=== PATIENT | female | born 1965 | race American Indian/Alaskan Native ===

== ENCOUNTER 2018-02-19 13:03 | Inpatient (IN) | payer MEDICAID ==
[2018-02-19 13:06] VITALS: BMI 43.4
[2018-02-19] MEDS ORDERED: Iodixanol 320 MG/ML 100 ML BOTTLE IV ONE (13:13)
[2018-02-19] MEDS ORDERED: Sodium Chloride 0.9% 1,000 ML IV SCH (13:15)
--- NOTE | 2018-02-19 13:15 | ED PDOC ---
Arrival/HPI - General Time Seen by Provider: 02/19/18 13:05 Historian: Patient, EMS - History of Present Illness Narrative History of Present Illness (Text): 02/19/18 13:16 Patient is a 52 yo female, reports past medical history of smoking and past history of hypertension, presents to the Emergency Department stating that she had acute onset of dizziness while sitting and talking on the phone. States she has increased dizziness when looking to the left. She has "feeling like something is not right" in her head but currently denies headache or chest pain or shortness of breath. Currently denies numbness or weakness to arms or legs. Denies neck pain. Denies fever or recent illness. 02/19/18 13:16 Family/Social History Family/Social History: Unknown Family HX Allergies/Home Meds Allergies/Adverse Reactions: Allergies diphenhydramine [From Benadryl] Allergy (Verified 02/19/18 13:06) RASH seafood Allergy (Uncoded 02/19/18 13:06) RASH Review of Systems - Review of Systems Constitutional: absent: Fatigue, Fevers Eyes: Vision Changes. absent: Eye Pain ENT: absent: Sore Throat, Rhinorrhea, Epistaxis, Sinus Congestion Respiratory: absent: SOB, Cough Cardiovascular: absent: Chest Pain, DRIVER Gastrointestinal: absent: Abdominal Pain Genitourinary Female: absent: Dysuria, Frequency Musculoskeletal: absent: Back Pain Skin: absent: Rash Neurological: Dizziness, Disequilibrium. absent: Headache, Focal Weakness, Speech Changes Endocrine: absent: Polyuria Hemo/Lymphatic: absent: Easy Bleeding Psychiatric: absent: Depression Physical Exam Vital Signs Reviewed: Yes Vital Signs Temp Pulse Resp BP Pulse Ox 02/19/18 15:16 98 F 84 18 172/93 H 100 02/19/18 15:04 65 02/19/18 14:49 57 L 18 211/99 H 100 02/19/18 14:06 68 18 182/102 H 97 02/19/18 14:05 70 187/112 H 02/19/18 13:52 68 18 187/112 H 98 02/19/18 13:41 98.4 F 65 18 178/130 H 96 Temperature: Afebrile Appearance: Positive for: Uncomfortable Pain Distress: Mild Mental Status: Positive for: Alert and Oriented X 3 Finger Stick Blood Glucose: 95 - Systems Exam Head: Present: Atraumatic Pupils: Present: PERRL Extroacular Muscles: Present: Gaze Palsy, Other (bilateral limitations with updward gaze, limitation with gaze in left eye) Conjunctiva: No: Injected Ears: No: Erythema Mouth: Present: Moist Mucous Membranes Pharnyx: No: ERYTHEMA Nose (Internal): Present: Normal Inspection Neck: Present: Normal Range of Motion. No: Meningeal Signs Respiratory/Chest: Present: Clear to Auscultation. No: Respiratory Distress Cardiovascular: Present: Regular Rate and Rhythm Abdomen: No: Tenderness Back: No: CVA Tenderness Upper Extremity: No: Cyanosis Lower Extremity: No: Edema Neurological: Present: Other (mild pronator drift). No: CN II-XII Intact Skin: Present: Warm Psychiatric: Present: Alert, Normal Concentration Medical Decision Making ED Course and Treatment: 02/19/18 13:20 Patient seen immediately upon arrival. She reports that she had sudden onset of symptoms approximately 12:45 while on phone. Currently denies headache or chest pain. Gaze palsy noted. CODE stroke called. Dr. Katty Lewis, neurologist is present in ED and also evaluated patient upon arrival. CT head and MRI ordered. Ddx cva, tia, aneurysm, mass, hemorrhage. Patient currently at CT awaiting results and will monitor, re-exam, serial neuro exams. Current NIHSS is 2. Upon return from CT head, report reviewed with radiologist and brain hemorrhage noted. Patient re-evaluated at 13:45, there is no change in her neurologic status. She remains awake, alert, still with gaze palsy. No focal extremity drift noted. She denies headache. She has normal speech. Brother and friend were present. She gave permission to review results in their presence. Abnormal CT findings reviewed with patient, and neurologist Dr. Lewis updated with patient's results. Emergent consultation placed with on-call neurosurgeon Dr. Mateus Uribe, he has remotely reviewed images. Blood pressure is elevated. Labetalol ordered, and subsequently Nicardipine drip for BP control. Treatment plan reviewed with patient and family, patient accepted to Dr. Cooley's service to ICU, case was reviewed with housekeeper manager Dr. Burris and care turned over to ICU team at 15:00. Neurology has requested FFP, this was ordered and turned over to ICU team. Family updated. Patient not a tpa candidate as THERE IS BRAIN HEMORRHAGE. No change in neuro exam, gaze symptoms persistent but patient remains awake, alert, conversive, moves all extremities well. Follow-up of MRA results turned over to neurologist and icu team. - Lab Interpretations Lab Results: 02/19/18 13:05 02/19/18 13:05 Lab Results 02/19/18 14:19: Blood Type Confirm O POSITIVE 02/19/18 13:58: Blood Type O POSITIVE, Antibody Screen Negative, BBK History Checked No verified bt 02/19/18 13:05: Sodium 147, Potassium 4.1, Chloride 111 H, Carbon Dioxide 23, Anion Gap 17, BUN 16, Creatinine 0.8, Est GFR ( Amer) > 60, Est GFR (Non- Af Amer) > 60, Random Glucose 106, Calcium 9.1, Total Bilirubin 0.6, AST 26, ALT 28, Alkaline Phosphatase 94, Troponin I < 0.01, Total Protein 8.1, Albumin 4.3, Globulin 3.8, Albumin/Globulin Ratio 1.1, Triglycerides 70, Cholesterol 165 , LDL Cholesterol Direct 90, HDL Cholesterol 47 02/19/18 13:05: PT 12.7 H, INR 1.11 H, APTT 33.7 02/19/18 13:05: WBC 7.4, RBC 4.68, Hgb 12.0, Hct 37.5, MCV 80.1, MCH 25.6, MCHC 32.0, RDW 15.2 H, Plt Count 439, MPV 8.9, Gran % 49.2 L, Lymph % (Auto) 36.9 H, [place] % (Auto) 6.6 H, Eos % (Auto) 6.2 H, Baso % (Auto) 1.1, Gran # 3.66, Lymph # (Auto) 2.7, [place] # (Auto) 0.5, Eos # (Auto) 0.5, Baso # (Auto) 0.08 - RAD Interpretation Radiology Orders: 02/19/18 13:07 HEAD W/O (CODE STROKE) [CT] Stat CHEST PORTABLE [RAD] Stat 02/19/18 13:13 MRA HEAD WITHOUT CONTRAST [MRI] Stat Cans Vacuum Tester: Radiologist - EKG Interpretation EKG Interpretation (Text): 02/19/18 15:46 EKG at 13:53 normal sinus rhythm rate of 70 with inferolateral t wave abnormality Interpreted by ED Physician: Yes Type: 12 lead EKG - Medication Orders Current Medication Orders: Nicardipine HCl (Cardene Iv Premix) 20 mg in 200 mls @ 50 mls/hr IV .Q4H PRN; Protocol; 5 MG/HR PRN Reason: TITRATE PER MD ORDER Last Admin: 02/19/18 15:04 Dose: 5 mg/hr, 50 mls/hr eMAR Start Stop Document 02/19/18 15:04 SRE (Rec: 02/19/18 15:04 SRE [id number]) Intravenous Solution Start Date 02/19/18 Start Time 15:00 MAR CARDIAC VS Document 02/19/18 15:04 SRE (Rec: 02/19/18 15:04 SRE [id number]) Vital Signs Pulse Rate (60-90 beats/min) 65 Titration Intervention Document 02/19/18 15:04 SRE (Rec: 02/19/18 15:04 SRE [id number]) Titration Intake Waste Amount 0 Container Volume 200 Titration Dosing Titration Dose 5 IV Rate 50 Intake/Decrease Started Pantoprazole Sodium (Protonix Inj) 40 mg IVP DAILY NAEEM Discontinued Medications Sodium Chloride (Sodium Chloride 0.9%) 1,000 mls @ 100 mls/hr IV .Q10H NAEEM Last Admin: 02/19/18 14:04 Dose: 100 mls/hr eMAR Start Stop Document 02/19/18 14:04 SRE (Rec: 02/19/18 14:05 SRE [id number]) Intravenous Solution Start Date 02/19/18 Start Time 13:15 Labetalol HCl (Trandate) 20 mg IV STAT STA Stop: 02/19/18 13:54 Last Admin: 02/19/18 14:05 Dose: 20 mg eMAR Start Stop Document 02/19/18 14:05 SRE (Rec: 02/19/18 14:06 SRE [id number]) Intravenous Solution Start Date 02/19/18 Start Time 14:00 End Date 02/19/18 End time 14:01 Total Infusion Time 1 MAR Pulse and Blood Pressure Document 02/19/18 14:05 SRE (Rec: 02/19/18 14:06 SRE [id number]) Pulse Pulse Rate (60-90 beats/min) 70 Blood Pressure Blood Pressure (100/60-150/90 mm Hg) 187/112 NIHSS Scale ([place]) Time Performed: 13:15 - How Severe is the Stoke Baseline Level of Consciousness: 0=Alert LOC to Questions: 0=Both comments correct LOC to commands: 0=Obeys both correctly Best Gaze: 1=Partial gaze palsy Visual: 0=No visual loss Facial: 0=Normal Motor Arm - Left: 0=No drift Motor Arm - Right: 1=Drift noted before 10 sec Motor Leg - Left: 0=No drift Motor Leg - Right: 0=No drift Limb Ataxia: 0=Absent Sensory: 0=Normal Best Language: 0=No aphasia Dysarthia: 0=Normal articulation Extinction & Inattention (Neglect): 0=Normal, no object Score: 2 Risk Level: Minor Stroke Risk NIHSS Scale([place]) 2 Time Performed: 14:00 - How Severe is the Stoke Baseline Level of Consciousness: 0=Alert LOC to Questions: 0=Both comments correct LOC to commands: 0=Obeys both correctly Best Gaze: 1=Partial gaze palsy Visual: 0=No visual loss Facial: 0=Normal Motor Arm - Left: 0=No drift Motor Arm - Right: 1=Drift noted before 10 sec Motor Leg - Left: 0=No drift Motor Leg - Right: 0=No drift Limb Ataxia: 0=Absent Sensory: 0=Normal Best Language: 0=No aphasia Dysarthia: 0=Normal articulation Extinction & Inattention (Neglect): 0=Normal, no object Score: 2 Risk Level: Minor Stroke Risk Disposition/Present on Arrival - Present on Arrival Any Indicators Present on Arrival: No - Disposition Have Diagnosis and Disposition been Completed?: Yes Diagnosis: Cerebral hemorrhage, Malignant hypertension Disposition: HOSPITALIZED Disposition Time: 14:00 Patient Plan: Admission, ICU Patient Problems: Current Active Problems Problem Status Onset Cerebral hemorrhage Acute Malignant hypertension Acute Condition: CRITICAL
[2018-02-19 13:28] LABS: INR 1.11 (0.93-1.08); PARTIAL THROMBOPLASTIN TIME 33.7 Seconds (25.1-36.5); PROTHROMBIN TIME 12.7 SECONDS (9.4-12.5)
[2018-02-19 13:30] LABS: ALB/GLOB RATIO 1.1 (1.1-1.8); ALBUMIN 4.3 g/dL (3.0-4.8); ALT/SGPT 28 U/L (7-56); AST/SGOT 26 U/L (14-36); BLOOD UREA NITROGEN 16 mg/dL (7-21); CALCIUM 9.1 mg/dL (8.4-10.5); GFR AFRICAN-AMERICAN > 60; GFR NON-AFRICAN AMERICAN > 60; HDL CHOLESTEROL 47 mg/dL (29-60)
--- NOTE | 2018-02-19 13:34 | CT ---
PROCEDURE: CT HEAD WITHOUT CONTRAST. HISTORY: Code Stroke COMPARISON: None available. TECHNIQUE: Axial computed tomography images were obtained through the head/brain without intravenous contrast. Radiation dose: Total exam DLP = 914 mGy-cm. This CT exam was performed using one or more of the following dose reduction techniques: Automated exposure control, adjustment of the mA and/or kV according to patient size, and/or use of iterative reconstruction technique. FINDINGS: HEMORRHAGE: There is an acute hemorrhage in the medial aspect of the left thalamus near the midline. The bladder appears to extend into the 3rd ventricle. The hemorrhage measures 18 mm AP x 15 mm wide by [address] George was called at 1:30 p.m. BRAIN: No mass effect or edema. No atrophy or chronic microvascular ischemic changes. VENTRICLES: Unremarkable. No hydrocephalus. CALVARIUM: Unremarkable. PARANASAL SINUSES: Unremarkable as visualized. No significant inflammatory changes. MASTOID AIR CELLS: Unremarkable as visualized. No inflammatory changes. OTHER FINDINGS: None. IMPRESSION: There is an acute hemorrhage in the medial aspect of the left thalamus near the midline. The bladder appears to extend into the 3rd ventricle. The hemorrhage measures 18 mm AP x 15 mm wide by 13 mm in height.
[2018-02-19 13:36] LABS: BASO # 0.08 K/mm3 (0.0-2.0); BASO % 1.1 % (0.0-3.0); EOS # 0.5 (0.0-0.7); EOS % 6.2 % (1.5-5.0); GRAN # 3.66 (1.4-6.5); GRAN % 49.2 % (50.0-68.0); LYMPH # 2.7 (1.2-3.4); LYMPH % 36.9 % (22.0-35.0); MEAN CELL VOLUME 80.1 fl (80.0-105.0); MEAN CORPUSCULAR HEMOGLOBIN 25.6 pg (25.0-35.0); MEAN PLATELET VOLUME 8.9 fl (7.0-11.0); MONO # 0.5 (0.1-0.6); MONO % 6.6 % (1.0-6.0); RBC 4.68 10^6/uL (3.5-6.1); RED CELL DISTRIBUTION WIDTH 15.2 % (11.5-14.5); WHITE BLOOD COUNT 7.4 10^3/ul (4.5-11.0)
--- NOTE | 2018-02-19 13:36 | RAD ---
HISTORY: Code Stroke COMPARISON: No prior. FINDINGS: LUNGS: No active pulmonary disease. PLEURA: No significant pleural effusion identified, no pneumothorax apparent. CARDIOVASCULAR: Mild cardiomegaly OSSEOUS STRUCTURES: No significant abnormalities. VISUALIZED UPPER ABDOMEN: Normal. OTHER FINDINGS: None. IMPRESSION: No active disease.
[2018-02-19 13:41] LABS: LDL CHOLESTEROL 90 mg/dL (0-129)
[2018-02-19 13:44] LABS: TROPONIN I < 0.01 ng/mL
[2018-02-19] MEDS ORDERED: Labetalol 5 mg/ml Inj 20ML IV STA (13:53)
--- NOTE | 2018-02-19 14:42 | CP.PCM.HP ---
<Tanisha Arroyo - Last Filed: 02/19/18 16:24> History of Present Illness - History of Present Illness History of Present Illness: 52yo female PMHx HTN presents to the ED with complaints of headache and dizziness since this AM. Patient reports she was on the phone with her sister and started to "feel some savanna way" which continued for 10 minutes. She reported she developed a frontal headache 9/10 in intensity and felt dizzy when she tried to walk. She reported these feelings did not improve and she called her family members who proceeded to call EMS and the patient was subsequently BIBA. In the ED patient reported her headache had slightly improved but she felt like her "eyes were going everywhere" when she looked left and complained of some blurry vision but denied photophobia. She was ao x 3 but having trouble finding the words to complete her sentences which was making her frustrated. She denied any acute complaints of fever, chills, sore throat, palpitations, cough, abd pain, nausea, vomiting, bowel/bladder complaints, pain/swelling in her legs b/l. She did complain of some mild SOB when walking. PMHx: HTN Meds: HCTZ Allergy: diphenhydramine PSurgHx: gastric bypass and hysterectomy PHospitalization: denies FamHx: sister had CVA and CAD SocialHx: 1ppd for 11 years, drinks EtOH ocassionally, denied drug use. 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 Lives at home alone. PMD: Dr. Gaitan-seen last month for routine check up Present on Admission - Present on Admission Any Indicators Present on Admission: No Review of Systems - Constitutional Constitutional: As Per HPI, Headache. absent: Chills, Fever - EENT Eyes: As Per HPI, Blurred Vision, Other Visual Disturbances Ears: As Per HPI, Dizziness Nose/Mouth/Throat: As Per HPI. absent: Sore Throat - Cardiovascular Cardiovascular: As Per HPI. absent: Chest Pain, Edema - Respiratory Respiratory: As Per HPI, Dyspnea on Exertion. absent: Cough - Gastrointestinal Gastrointestinal: As Per HPI. absent: Abdominal Pain, Constipation, Diarrhea, Nausea, Vomiting - Genitourinary Genitourinary: As Per HPI. absent: Dysuria, Hematuria - Musculoskeletal Musculoskeletal: As Per HPI. absent: Limited Range of Motion, Numbness, Tingling - Integumentary Integumentary: As Per HPI. absent: Dry Skin - Neurological Neurological: As Per HPI, Disequilibrium, Dizziness, Headaches, Other (can't think of the words to complete sentences). absent: Convulsions, Numbness, Frequent Falls, Memory Loss, Paresthesias, Tingling, Weakness - Psychiatric Psychiatric: As Per HPI. absent: Anxiety, Depression - Endocrine Endocrine: As Per HPI. absent: Polydipsia, Polyphagia, Polyuria - Hematologic/Lymphatic Hematologic: As Per HPI. absent: Easy Bleeding, Easy Bruising Past Patient History - Infectious Disease Hx of Infectious Diseases: None - Past Social History Smoking Status: Current Some Days Smoker - CARDIAC Hx Hypertension: Yes - PSYCHIATRIC Hx Substance Use: No - SURGICAL HISTORY Hx Hysterectomy: Yes - ANESTHESIA Hx Anesthesia Reactions: No Hx Malignant Hyperthermia: No Meds Allergies/Adverse Reactions: Allergies Allergy/AdvReac Type Severity Reaction Status Date / Time diphenhydramine Allergy RASH Verified 02/19/18 13:06 [From Benadryl] seafood Allergy RASH Uncoded 02/19/18 13:06 Physical Exam - Constitutional Appears: No Acute Distress - Head Exam Head Exam: ATRAUMATIC, NORMAL INSPECTION, NORMOCEPHALIC - Eye Exam Eye Exam: PERRL (sluggish). absent: Conjunctival injection, EOMI (upward gaze palsy), Scleral icterus Pupil Exam: NORMAL ACCOMODATION, PERRL (sluggish) - ENT Exam ENT Exam: Mucous Membranes Moist - Neck Exam Neck exam: Positive for: Normal Inspection. Negative for: Meningismus - Respiratory Exam Respiratory Exam: Clear to Auscultation Bilateral. absent: Accessory Muscle Use , Rales, Rhonchi, Wheezes, Respiratory Distress - Cardiovascular Exam Cardiovascular Exam: RRR, +S1, +S2 - GI/Abdominal Exam GI & Abdominal Exam: Normal Bowel Sounds, Soft. absent: Distended, Firm, Guarding, Tenderness - Rectal Exam Rectal Exam: Deferred - Extremities Exam Extremities exam: Positive for: normal capillary refill, normal inspection, pedal pulses present. Negative for: pedal edema - Neurological Exam Neurological exam: Alert, Oriented x3 Additional comments: CN3 palsy - patient has upward gaze palsy - Psychiatric Exam Psychiatric exam: Normal Affect, Normal Mood - Skin Skin Exam: Dry, Intact, Normal Color, Warm Results - Vital Signs Recent Vital Signs: Last Vital Signs Temp 98.4 F 02/19/18 13:41 Pulse 68 02/19/18 14:06 Resp 18 02/19/18 14:06 BP 182/102 H 02/19/18 14:06 Pulse Ox 97 02/19/18 14:06 - Labs Result Diagrams: 02/19/18 13:05 02/19/18 13:05 Labs: Laboratory Results - last 24 hr 02/19/18 02/19/18 02/19/18 13:05 13:05 13:05 WBC 7.4 RBC 4.68 Hgb 12.0 Hct 37.5 MCV 80.1 MCH 25.6 MCHC 32.0 RDW 15.2 H Plt Count 439 MPV 8.9 Gran % 49.2 L Lymph % (Auto) 36.9 H [place] % (Auto) 6.6 H Eos % (Auto) 6.2 H Baso % (Auto) 1.1 Gran # 3.66 Lymph # (Auto) 2.7 [place] # (Auto) 0.5 Eos # (Auto) 0.5 Baso # (Auto) 0.08 PT 12.7 H INR 1.11 H APTT 33.7 Sodium 147 Potassium 4.1 Chloride 111 H Carbon Dioxide 23 Anion Gap 17 BUN 16 Creatinine 0.8 Est GFR ( Amer) > 60 Est GFR (Non-Af Amer) > 60 Random Glucose 106 Calcium 9.1 Total Bilirubin 0.6 AST 26 ALT 28 Alkaline Phosphatase 94 Troponin I < 0.01 Total Protein 8.1 Albumin 4.3 Globulin 3.8 Albumin/Globulin Ratio 1.1 Triglycerides 70 Cholesterol 165 LDL Cholesterol Direct 90 HDL Cholesterol 47 BBK History Checked 02/19/18 13:58 WBC RBC Hgb Hct MCV MCH MCHC RDW Plt Count MPV Gran % Lymph % (Auto) [place] % (Auto) Eos % (Auto) Baso % (Auto) Gran # Lymph # (Auto) [place] # (Auto) Eos # (Auto) Baso # (Auto) PT INR APTT Sodium Potassium Chloride Carbon Dioxide Anion Gap BUN Creatinine Est GFR ( Amer) Est GFR (Non-Af Amer) Random Glucose Calcium Total Bilirubin AST ALT Alkaline Phosphatase Troponin I Total Protein Albumin Globulin Albumin/Globulin Ratio Triglycerides Cholesterol LDL Cholesterol Direct HDL Cholesterol BBK History Checked No verified bt Assessment & Plan - Assessment and Plan (Free Text) Assessment: 52yo female PMHx HTN presents to the ED with complaints of headache and dizziness since this AM. Patient found to have acute hemorrhagic CVA on head CT and was transferred to ICU for further monitoring Plan: Acute CVA -Head CT: acute hemorrhage in medial aspect of the L thalamus near the midline. Appears to extend into the 3rd ventricle. Hemorrhage measures 18mm AP x 15mm wide by 13mm in height. -Head MRA: unremarkable -f/u AM labs -f/u Echo -Cardene gtt maintain BP < 140mmHg systolic -maintain euthermia and euglycemia -NPO -speech/swallow eval -PT/OT eval -Aspiration precautions -Seizure precautions -Neurocheck -HoB at 35degrees -VTE ppx c/i -Neurology and Neurosurgery consulted- f/u reccs Hx of HTN -counselor aid patient on importance of medication compliance -Cardene gtt Hx of tobacco abuse -smoking cessaion counseling GI ppx: Protonix ivp DVT ppx: SCDs Diet: NPO Dispo: monitor in MICU Discussed with Dr. Iqra Arroyo PGY2 <Brendan Escalona - Last Filed: 02/20/18 13:41> Results - Vital Signs Recent Vital Signs: Last Vital Signs Temp 98 F 02/19/18 16:17 Pulse 86 02/20/18 11:01 Resp 24 02/20/18 11:01 BP 149/79 02/20/18 11:01 Pulse Ox 93 L 02/20/18 11:01 - Labs Result Diagrams: 02/20/18 05:30 02/20/18 05:30 Labs: Laboratory Results - last 24 hr 02/19/18 02/19/18 02/20/18 18:31 21:36 05:30 WBC 10.8 D RBC 4.91 Hgb 12.6 Hct 38.5 MCV 78.4 L MCH 25.7 MCHC 32.7 RDW 14.9 H Plt Count 476 H MPV 9.2 Gran % 80.7 H Lymph % (Auto) 14.1 L [place] % (Auto) 4.3 Eos % (Auto) 0.5 L Baso % (Auto) 0.4 Gran # 8.69 H Lymph # (Auto) 1.5 [place] # (Auto) 0.5 Eos # (Auto) 0.1 Baso # (Auto) 0.04 Sodium Potassium Chloride Carbon Dioxide Anion Gap BUN Creatinine Est GFR ( Amer) Est GFR (Non-Af Amer) POC Glucose (mg/dL) 122 H 132 H Random Glucose Calcium Phosphorus Magnesium Total Bilirubin AST ALT Alkaline Phosphatase Total Protein Albumin Globulin Albumin/Globulin Ratio Triglycerides Cholesterol LDL Cholesterol Direct HDL Cholesterol Free T4 TSH 3rd Generation 02/20/18 02/20/18 02/20/18 05:30 05:30 07:16 WBC RBC Hgb Hct MCV MCH MCHC RDW Plt Count MPV Gran % Lymph % (Auto) [place] % (Auto) Eos % (Auto) Baso % (Auto) Gran # Lymph # (Auto) [place] # (Auto) Eos # (Auto) Baso # (Auto) Sodium 143 Potassium 3.4 L Chloride 104 Carbon Dioxide 24 Anion Gap 18 BUN 12 Creatinine 0.9 Est GFR ( Amer) > 60 Est GFR (Non-Af Amer) > 60 POC Glucose (mg/dL) 137 H Random Glucose 154 H Calcium 9.2 Phosphorus 3.3 Magnesium 1.9 Total Bilirubin 0.6 AST 34 ALT 27 Alkaline Phosphatase 92 Total Protein 8.3 Albumin 4.4 Globulin 4.0 Albumin/Globulin Ratio 1.1 Triglycerides 51 Cholesterol 178 LDL Cholesterol Direct 97 HDL Cholesterol 49 Free T4 0.89 TSH 3rd Generation 0.27 L 02/20/18 11:17 WBC RBC Hgb Hct MCV MCH MCHC RDW Plt Count MPV Gran % Lymph % (Auto) [place] % (Auto) Eos % (Auto) Baso % (Auto) Gran # Lymph # (Auto) [place] # (Auto) Eos # (Auto) Baso # (Auto) Sodium Potassium Chloride Carbon Dioxide Anion Gap BUN Creatinine Est GFR ( Amer) Est GFR (Non-Af Amer) POC Glucose (mg/dL) 126 H Random Glucose Calcium Phosphorus Magnesium Total Bilirubin AST ALT Alkaline Phosphatase Total Protein Albumin Globulin Albumin/Globulin Ratio Triglycerides Cholesterol LDL Cholesterol Direct HDL Cholesterol Free T4 TSH 3rd Generation Attending/Attestation - Attestation I have personally seen and examined this patient.: Yes I have fully participated in the care of the patient.: Yes I have reviewed all pertinent clinical information: Yes Notes (Text): I have seen and examined patient with the resident. Agree with the note dictated above with the following additions/exceptions: Briefly this is 52 year old female with history of tobacco use, morbid obesity (BMI 43), s/p gastric by pass surgery who was admitted for evaluation of dizziness, headache and found to have left thalamic intra cranial hemorrhage. Her BP was found to be elevated. She is currently on cardene drip. 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 Neurologist and neurosurgeon on board. Maintain normothermia , normoglycemia and aggressive BP control. Keep NPO untl swallow eval is done. No signs of increase ICP so far. Keep HOB elevated at 30 degrees. Morphine prn pain. No indication to start mannitol. Will discuss with neurologist if keppra needs to be started. Will order echo. PT eval will be ordered. Upon discharge patient will follow up with Dr Gaitan.
[2018-02-19] MEDS: Nicardipine 20 MG/200 ML 20 MG/200 ML BAG IV PRN ×4 (15:04→23:00)
--- NOTE | 2018-02-19 15:06 | CP.PCM.CON ---
<Stephan Carey - Last Filed: 02/19/18 15:22> History of Present Illness - History of Present Illness History of Present Illness: ICU consult note: 52 F with PMH of HTN, current smoker, and gastric bypass presents to the ED with headache and dizziness. Patient states that she was sitting and talking on the phone with her sister and was "frustrated." than five min later she developed a headache and dizziness when she started walking. Headache is generalized and 8/10 in severity. She denies this ever occurring before. She does complains of some blurry vision in the L eye. No other complaints. 12 Point ROS performed and neg other than stated above. PMH: HTN and current smoker PSHx: Gastric bypass 2014 Med: Refer to MAR ALL: NKA SH: admits to smoking 1 PPD daily for "many years", social drinks, denies any recreational drugs Review of Systems - Review of Systems All systems: reviewed and no additional remarkable complaints except Past Patient History - Infectious Disease Hx of Infectious Diseases: None - Past Social History Smoking Status: Current Some Days Smoker - CARDIAC Hx Hypertension: Yes - PSYCHIATRIC Hx Substance Use: No - SURGICAL HISTORY Hx Hysterectomy: Yes - ANESTHESIA Hx Anesthesia Reactions: No Hx Malignant Hyperthermia: No Meds Allergies/Adverse Reactions: Allergies Allergy/AdvReac Type Severity Reaction Status Date / Time diphenhydramine Allergy RASH Verified 02/19/18 13:06 [From Benadryl] seafood Allergy RASH Uncoded 02/19/18 13:06 - Medications Medications: Current Medications Sodium Chloride (Sodium Chloride 0.9%) 1,000 mls @ 100 mls/hr IV .Q10H [facility] Last Admin: 02/19/18 14:04 Dose: 100 mls/hr Nicardipine HCl (Cardene Iv Premix) 20 mg in 200 mls @ 50 mls/hr IV .Q4H PRN; Protocol; 5 MG/HR PRN Reason: TITRATE PER MD ORDER Pantoprazole Sodium (Protonix Inj) 40 mg IVP DAILY [facility] Physical Exam - Constitutional Appears: No Acute Distress - Head Exam Head Exam: ATRAUMATIC, NORMOCEPHALIC - Eye Exam Eye Exam: EOMI, PERRL (Sluggish) Pupil Exam: NORMAL ACCOMODATION - ENT Exam ENT Exam: Mucous Membranes Moist - Neck Exam Neck exam: Positive for: Normal Inspection - Respiratory Exam Respiratory Exam: Clear to Auscultation Bilateral. absent: Rales, Rhonchi, Wheezes - Cardiovascular Exam Cardiovascular Exam: REGULAR RHYTHM, RRR, +S1, +S2 - GI/Abdominal Exam GI & Abdominal Exam: Normal Bowel Sounds, Soft. absent: Tenderness - Extremities Exam Extremities exam: Negative for: calf tenderness, pedal edema - Neurological Exam Neurological exam: Alert, CN II-XII Intact, Oriented x3 - Psychiatric Exam Psychiatric exam: Normal Affect, Normal Mood - Skin Skin Exam: Dry, Intact, Warm Results - Vital Signs Recent Vital Signs: Last Vital Signs Temp 98.4 F 02/19/18 13:41 Pulse 57 L 02/19/18 14:49 Resp 18 02/19/18 14:49 BP 211/99 H 02/19/18 14:49 Pulse Ox 100 02/19/18 14:49 - Labs Result Diagrams: 02/19/18 13:05 02/19/18 13:05 Labs: Laboratory Results - last 24 hr 02/19/18 02/19/18 02/19/18 13:05 13:05 13:05 WBC 7.4 RBC 4.68 Hgb 12.0 Hct 37.5 MCV 80.1 MCH 25.6 MCHC 32.0 RDW 15.2 H Plt Count 439 MPV 8.9 Gran % 49.2 L Lymph % (Auto) 36.9 H [place] % (Auto) 6.6 H Eos % (Auto) 6.2 H Baso % (Auto) 1.1 Gran # 3.66 Lymph # (Auto) 2.7 [place] # (Auto) 0.5 Eos # (Auto) 0.5 Baso # (Auto) 0.08 PT 12.7 H INR 1.11 H APTT 33.7 Sodium 147 Potassium 4.1 Chloride 111 H Carbon Dioxide 23 Anion Gap 17 BUN 16 Creatinine 0.8 Est GFR ( Amer) > 60 Est GFR (Non-Af Amer) > 60 Random Glucose 106 Calcium 9.1 Total Bilirubin 0.6 AST 26 ALT 28 Alkaline Phosphatase 94 Troponin I < 0.01 Total Protein 8.1 Albumin 4.3 Globulin 3.8 Albumin/Globulin Ratio 1.1 Triglycerides 70 Cholesterol 165 LDL Cholesterol Direct 90 HDL Cholesterol 47 Blood Type Blood Type Confirm Antibody Screen BBK History Checked 02/19/18 02/19/18 13:58 14:19 WBC RBC Hgb Hct MCV MCH MCHC RDW Plt Count MPV Gran % Lymph % (Auto) [place] % (Auto) Eos % (Auto) Baso % (Auto) Gran # Lymph # (Auto) [place] # (Auto) Eos # (Auto) Baso # (Auto) PT INR APTT Sodium Potassium Chloride Carbon Dioxide Anion Gap BUN Creatinine Est GFR ( Amer) Est GFR (Non-Af Amer) Random Glucose Calcium Total Bilirubin AST ALT Alkaline Phosphatase Troponin I Total Protein Albumin Globulin Albumin/Globulin Ratio Triglycerides Cholesterol LDL Cholesterol Direct HDL Cholesterol Blood Type O POSITIVE Blood Type Confirm O POSITIVE Antibody Screen Negative BBK History Checked No verified bt Assessment & Plan - Assessment and Plan (Free Text) Assessment: 52 F with PMH of HTN, current smoker, and gastric bypass presents to the ED with headache and dizziness found to have acute hemorrhage in the left thalamus. Neuro: - CT head reviewed - acute hemorrhage in the left thalamus 1.8x 1.5x 1.3 - MRA ordered - will f/u report - F/u Neuro surgery consult - Neuro consult for recs - AAO x 3 - Swallow eval - HOB elevation 35' - Neuro checks Q1H - Aspiration precautions Pulm: - maintain SPO2 > 90 % - 2L NC as needed CV: - maintain MAP > 65 - Hypertensive - Labatolol 20mg x 1 - Started on Cardene ggt - Echo ordered - Maintain BP < 140 GI: - NPO - Swallow eval and treat - Protonix for ppx Renal: - Replete electrolytes as tolerated - Avoid nephrotoxic drugs ID: - Afebrile, No leukocytosis - Cont to monitor Endo: - Maintain euglycemic Heme: - Monitor H/H GI/DVT ppx Case and plan was reviewed and discussed with Dr Burris. <Andrew Burris - Last Filed: 02/19/18 16:23> Meds - Medications Medications: Current Medications Acetaminophen (Tylenol 650 Mg Supp) 650 mg RC Q6H PRN PRN Reason: Fever >100.4 F Nicardipine HCl (Cardene Iv Premix) 20 mg in 200 mls @ 50 mls/hr IV .Q4H PRN; Protocol; 5 MG/HR PRN Reason: TITRATE PER MD ORDER Last Admin: 02/19/18 15:04 Dose: 5 mg/hr, 50 mls/hr Pantoprazole Sodium (Protonix Inj) 40 mg IVP DAILY [facility] Results - Vital Signs Recent Vital Signs: Last Vital Signs Temp 98 F 02/19/18 15:16 Pulse 84 02/19/18 15:16 Resp 18 02/19/18 15:16 BP 172/93 H 02/19/18 15:16 Pulse Ox 100 02/19/18 15:16 - Labs Result Diagrams: 02/19/18 13:05 02/19/18 13:05 Assessment & Plan - Assessment and Plan (Free Text) Assessment: Patient seen and examined with resident, agree with note, with following additions/exceptions: Patient is 52yo female with PMhx of obesity, s/p gastric bypass surgery, smoker , presents with dizziness, headache, and L thalamic ICH. Currently afebrile, hypertensive, started on Cardene drip. No focal neurological motor deficits. ICH HTN, malignant Obesity Hx Smoking Recommend: - supp o2 as needed - BP control, Cardene drip, SBP <140 - Keppra for seizure ppx - Neurology, NSG consults - MRA brain - Speech swallow eval - ECHO - GI ppx - DVT ppx, SCDs - monitor in ICU
--- NOTE | 2018-02-19 15:07 | MRI ---
PROCEDURE: Magnetic Resonance Angiography Brain HISTORY: acute gaze palsy COMPARISON: None available. TECHNIQUE: 3D time of flight MR angiography of the intracranial arteries was performed. Rotating maximum intensity projection images were generated. FINDINGS: INTERNAL CAROTID ARTERIES: Unremarkable. The skull base, petrous, cavernous and supraclinoid segments are bilaterally widely patient. ANTERIOR CEREBRAL ARTERIES: Unremarkable. A1 and A2 segments are widely patent. Smaller distal branches unremarkable, as visualized. MIDDLE CEREBRAL ARTERIES: Unremarkable. M1 and M2 segments are widely patent. Perisylvian branches grossly symmetric. POSTERIOR CIRCULATION: Basilar Artery: Unremarkable. Distal Vertebral Arteries: Unremarkable. Posterior Cerebral Arteries: Unremarkable. Posterior Inferior Cerebellar Arteries: Unremarkable. ANEURYSM/ VASCULAR MALFORMATIONS: None. OTHER FINDINGS: As seen on the earlier CT study there is a left the Da[place] 8 hemorrhage extending into the upper midbrain. There is no evidence of a vascular malformation or aneurysm in this region. IMPRESSION: Unremarkable MR angiography of the brain.
--- NOTE | 2018-02-19 15:23 | CARD ---
APPROVED REPORT EKG Measurement Heart [id number] <Conclusion> Normal sinus rhythm T wave abnormality, consider inferolateral ischemia Abnormal ECG
--- NOTE | 2018-02-19 17:12 | CP.PCM.CON ---
History of Present Illness - History of Present Illness History of Present Illness: 52 yr old right handed woman who presented 30 minutes after experiencing confusion, dysarthria and sudden right arm face and leg numbness with some eye discomfort. Neurology was consulted and she was seen when she presented to the ER, and it was found that her symptoms had all but resolved with hemorrhage on CT scan. MIss Laws says she has had this type of spell previously, and denies headache, dysarthria, aphasia, nausea, vomiting or diarrhea. PMH/PSH: HTN FH/SH: smokes 1/2 ppd for many years. All: benadryl and seafood and contrast dye. on exam: AAOX3. PERRL, with bilateral cn4 palsy, as well as left CN3 and left CN4 palsy. +diplopia on upward and lateral gaze. Inability to look up. Rest of the neurological examination is normal. no sensory loss, normal strength. Gait normal, bilateral upgoing toes. no clonus. SPeech is fluent with no deficits in naming and repetition. Past Patient History - Infectious Disease Hx of Infectious Diseases: None - Past Social History Smoking Status: Current Some Days Smoker - CARDIAC Hx Hypertension: Yes - MUSCULOSKELETAL/RHEUMATOLOGICAL Hx Falls: No - PSYCHIATRIC Hx Substance Use: No - SURGICAL HISTORY Hx Hysterectomy: Yes - ANESTHESIA Hx Anesthesia Reactions: No Hx Malignant Hyperthermia: No Meds Allergies/Adverse Reactions: Allergies Allergy/AdvReac Type Severity Reaction Status Date / Time diphenhydramine Allergy RASH Verified 02/19/18 13:06 [From Benadryl] seafood Allergy RASH Uncoded 02/19/18 13:06 - Medications Medications: Current Medications Acetaminophen (Tylenol 650 Mg Supp) 650 mg RC Q6H PRN PRN Reason: Fever >100.4 F Nicardipine HCl (Cardene Iv Premix) 20 mg in 200 mls @ 50 mls/hr IV .Q4H PRN; Protocol; 5 MG/HR PRN Reason: TITRATE PER MD ORDER Last Admin: 02/19/18 15:04 Dose: 5 mg/hr, 50 mls/hr Pantoprazole Sodium (Protonix Inj) 40 mg IVP DAILY [facility] Results - Vital Signs Recent Vital Signs: Last Vital Signs Temp 98 F 02/19/18 16:17 Pulse 84 02/19/18 16:17 Resp 18 02/19/18 16:17 BP 172/93 H 02/19/18 16:17 Pulse Ox 100 02/19/18 15:16 - Labs Result Diagrams: 02/19/18 13:05 02/19/18 13:05 - Imaging and Cardiology CT scan - head Status: Image reviewed by me, Report reviewed by me (CT head shows a thalamic bleed extending into the midbrain superior colliculi. ) Assessment & Plan - Assessment and Plan (Free Text) Assessment: 52 yr old woman with intracranial bleed in thalamus and midbrain resulting in deficits in extraocular movements as well as sensory loss, that may be caused by hypertension, but aneurysm must also be considered. PLan: 1. MRA of brain as she is allergic to seafood and benadryl. 2. HYpertension control as per ICU team 3. Admit to ICU with neuro checks. 4. Repeat CT scan head in the am. Thank you. Dr. Lewis.
[2018-02-20] MEDS: Nicardipine 20 MG/200 ML 20 MG/200 ML BAG IV PRN ×11 (00:11→22:38)
--- NOTE | 2018-02-20 02:16 | CT ---
EXAM: CT Head Without Intravenous Contrast CLINICAL HISTORY: 52 years old, female; Signs and symptoms; Weakness, extremity; Additional info: Evaluate for worsening bleed TECHNIQUE: Axial computed tomography images of the head/brain without intravenous contrast. All CT scans at this facility use one or more dose reduction techniques, viz.: automated exposure control; ma/kV adjustment per patient size (including targeted exams where dose is matched to indication; i.e. head); or iterative reconstruction technique. Coronal and sagittal reformatted images were created and reviewed. COMPARISON: CT - HEAD W/O (CODE STROKE) 2018-02-19 13:17 FINDINGS: Limitations: Motion artifact - mild. Brain: Minimal atrophy. Redemonstration of intraparenchymal hemorrhage within left thalamus with minimal surrounding edema, grossly stable. Few scattered foci of decreased attenuation within periventricular/subcortical white matter. Grossly preserved paredes-white matter differentiation. Ventricles: No hydrocephalus. Bones/joints: No acute fracture. Soft tissues: Unremarkable. Vasculature: Mild atherosclerotic disease of intracranial arteries. Sinuses: [id number] mucosal thickening of RIGHT maxillary sinus. Scattered minimal mucosal thickening of remaining sinuses. Mastoid air cells: No mastoid effusion. Orbits: Unremarkable as visualized. IMPRESSION: 1. Intraparenchymal hemorrhage within left thalamus, grossly unchanged. 2. Nonspecific white matter changes. 3. Incidental/non-acute findings are described above.
--- NOTE | 2018-02-20 06:18 | CP.PCM.PCO ---
Additional Comments - Additional Comments Additional Comments: -Overnight, RN noted patient to be increasingly altered (unable to A&Ox1) -Therefore, stat CT-head was done which shows no changes from previous
[2018-02-20 07:03] LABS: BASO # 0.04 K/mm3 (0.0-2.0); BASO % 0.4 % (0.0-3.0); EOS # 0.1 (0.0-0.7); EOS % 0.5 % (1.5-5.0); GRAN # 8.69 (1.4-6.5); GRAN % 80.7 % (50.0-68.0); HEMOGLOBIN 12.6 g/dL (12.0-16.0); LYMPH # 1.5 (1.2-3.4); LYMPH % 14.1 % (22.0-35.0); MEAN CELL VOLUME 78.4 fl (80.0-105.0); MEAN CORPUSCULAR HEMOGLOBIN 25.7 pg (25.0-35.0); MEAN CORPUSCULAR HGB CONC 32.7 g/dl (31.0-37.0); MEAN PLATELET VOLUME 9.2 fl (7.0-11.0); MONO # 0.5 (0.1-0.6); MONO % 4.3 % (1.0-6.0); RBC 4.91 10^6/uL (3.5-6.1); RED CELL DISTRIBUTION WIDTH 14.9 % (11.5-14.5); WHITE BLOOD COUNT 10.8 10^3/ul (4.5-11.0)
[2018-02-20 07:20] LABS: LDL CHOLESTEROL 97 mg/dL (0-129)
[2018-02-20 07:26] LABS: FREE T4 0.89 ng/dL (0.78-2.19)
[2018-02-20 07:33] LABS: ALB/GLOB RATIO 1.1 (1.1-1.8); ALBUMIN 4.4 g/dL (3.0-4.8); ALT/SGPT 27 U/L (7-56); AST/SGOT 34 U/L (14-36); BLOOD UREA NITROGEN 12 mg/dL (7-21); CALCIUM 9.2 mg/dL (8.4-10.5); GFR AFRICAN-AMERICAN > 60; GFR NON-AFRICAN AMERICAN > 60; HDL CHOLESTEROL 49 mg/dL (29-60)
[2018-02-20] MEDS ORDERED: Magnesium Citrate Oral SOL (300 ml) PO ONE (07:46)
--- NOTE | 2018-02-20 07:49 | CP.PCM.PN ---
<Tanisha Arroyo - Last Filed: 02/20/18 17:56> Subjective - Date & Time of Evaluation Date of Evaluation: 02/20/18 Time of Evaluation: 07:30 - Subjective Subjective: PGY2 Neurology progress note for Dr. Dumont Patient seen and examined at bedside. Overnight events noted. Patient was ao x 3 this morning and does not recall overnight events. She continues to have blurry vision in her left eye and sometimes feels like she is seeing double. Denied acute complaints of headache, dizziness, chest pain, SOB, cough, abd pain , nausea, vomiting, bowel/bladder complaints, pain/swelling in her legs b/l. Patient has been kept NPO and reports she is hungry. Objective - Vital Signs/Intake and Output Vital Signs (last 24 hours): Temp Pulse Resp BP Pulse Ox 98 F 70 35 H 116/60 96 02/19/18 16:17 02/20/18 05:50 02/20/18 05:50 02/20/18 05:30 02/20/18 05:50 Intake and Output: 02/20/18 02/20/18 06:59 18:59 Intake Total 1800 Output Total 1050 Balance 750 - Medications Medications: Current Medications Acetaminophen (Tylenol 650 Mg Supp) 650 mg RC Q6H PRN PRN Reason: Fever >100.4 F Nicardipine HCl (Cardene Iv Premix) 20 mg in 200 mls @ 50 mls/hr IV .Q4H PRN; Protocol; 5 MG/HR PRN Reason: TITRATE PER MD ORDER Last Admin: 02/20/18 06:43 Dose: 12.5 mg/hr, 125 mls/hr Magnesium Citrate (Citrate Of Mag) 300 ml PO ONCE ONE Stop: 02/20/18 07:47 Ondansetron HCl (Zofran Inj) 4 mg IVP Q6H PRN PRN Reason: Nausea/Vomiting Last Admin: 02/19/18 20:38 Dose: 4 mg Pantoprazole Sodium (Protonix Inj) 40 mg IVP DAILY [facility] Polyethylene Glycol (Miralax) 17 gm PO DAILY [facility] - Labs Labs: 02/20/18 05:30 02/20/18 05:30 PT 12.7 SECONDS (9.4-12.5) H 02/19/18 13:05 INR 1.11 (0.93-1.08) H 02/19/18 13:05 APTT 33.7 Seconds (25.1-36.5) 02/19/18 13:05 - Constitutional Appears: Non-toxic, No Acute Distress - Eye Exam Eye Exam: Normal appearance. absent: EOMI (upward gaze palsy) Pupil Exam: PERRL - ENT Exam ENT Exam: Mucous Membranes Moist - Respiratory Exam Respiratory Exam: Clear to Ausculation Bilateral, NORMAL BREATHING PATTERN - Cardiovascular Exam Cardiovascular Exam: +S1, +S2 - GI/Abdominal Exam GI & Abdominal Exam: Soft, Normal Bowel Sounds - Extremities Exam Extremities Exam: Normal Inspection. absent: Pedal Edema - Neurological Exam Neurological Exam: Alert, Awake, Oriented x3. absent: CN II-XII Intact, Motor Sensory Deficit Additional comments: slight R sided facial droop upward gaze palsy - Psychiatric Exam Psychiatric exam: Normal Affect, Normal Mood - Skin Skin Exam: Dry, Intact, Normal Color, Warm Assessment and Plan - Assessment and Plan (Free Text) Assessment: 52yo female PMHx HTN admitted for left thalamic intracerebral hemorrhage. Plan: -f/u repeat head CT in AM -f/u Echo -MRA unremarkable -repeat head CT had no acute changes -Head CT on admission: acute hemorrhage in medial aspect of the L thalamus near the midline. Appears to extend into the 3rd ventricle. Hemorrhage measures 18mm AP x 15mm wide by 13mm in height. -HoB above 35 degrees -recommend eye patch for left eye -recommend Norvasc 5mg po qd -On cardene gtt for blood pressure maintenance, titrate to maintain BP < 140mmHg systolic -maintain euthermia and euglycemia -Pending repeat swallow eval -Cont Neuro checks -Cont Aspiration precautions -Avoid sedative drugs -Seizure precautions -continue management as per ICU team Discussed with Dr. Tim Arroyo PGY2 <Huey Dumont - Last Filed: 02/20/18 21:21> Objective - Vital Signs/Intake and Output Vital Signs (last 24 hours): Temp Pulse Resp BP Pulse Ox 98 F 97 H 26 H 139/71 97 02/19/18 16:17 02/20/18 17:51 02/20/18 17:40 02/20/18 17:01 02/20/18 17:40 Intake and Output: 02/20/18 02/21/18 18:59 06:59 Intake Total 2500 200 Output Total 800 Balance 1700 200 - Medications Medications: Current Medications Acetaminophen (Tylenol 650 Mg Supp) 650 mg RC Q6H PRN PRN Reason: Fever >100.4 F Amlodipine Besylate (Norvasc) 5 mg PO DAILY [facility] Last Admin: 02/20/18 15:43 Dose: 5 mg Nicardipine HCl (Cardene Iv Premix) 20 mg in 200 mls @ 50 mls/hr IV .Q4H PRN; Protocol; 5 MG/HR PRN Reason: TITRATE PER MD ORDER Last Admin: 02/20/18 20:29 Dose: 10 mg/hr, 100 mls/hr Ondansetron HCl (Zofran Inj) 4 mg IVP Q6H PRN PRN Reason: Nausea/Vomiting Last Admin: 02/19/18 20:38 Dose: 4 mg Pantoprazole Sodium (Protonix Inj) 40 mg IVP DAILY [facility] Last Admin: 02/20/18 11:05 Dose: 40 mg Polyethylene Glycol (Miralax) 17 gm PO DAILY [facility] Last Admin: 02/20/18 15:55 Dose: Not Given - Labs Labs: 02/20/18 05:30 02/20/18 05:30 PT 12.7 SECONDS (9.4-12.5) H 02/19/18 13:05 INR 1.11 (0.93-1.08) H 02/19/18 13:05 APTT 33.7 Seconds (25.1-36.5) 02/19/18 13:05 Attending/Attestation - Attestation I have personally seen and examined this patient.: Yes I have fully participated in the care of the patient.: Yes I have reviewed all pertinent clinical information, including history, physical exam and plan: Yes
--- NOTE | 2018-02-20 08:42 | CON ---
HISTORY OF PRESENT ILLNESS: I was contacted emergently by Dr. Corbin in the ER about a 52-year-old hypertensive lady, who came in primarily with visual symptoms. CT of the brain documented relatively small, but unfortunately malignly placed hemorrhage, probably originating in the left thalamus and rupturing into the mid brain. The third ventricle actually well seen. 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 Her blood pressure was extremely high. IMPRESSION: Certainly, no surgical intervention. I would defer to Neurology regarding blood pressure management. I would also keep the head of bed elevated. I would recommend a followup CT in the morning as there is a chance she could develop hydrocephalus which is clearly not present now. Joe Castañeda MD
--- NOTE | 2018-02-20 10:14 | CP.CCUPN ---
<Rodger Chery - Last Filed: 02/20/18 10:06> CCU Subjective - Physician Review Subjective (Free Text): 02/20/18 10:07 Rodger Chery D.O. PGY-2, Internal Medicine Resident, Critical Care Progress Note 52 year old female with a PMH of HTN, current smoker, and gastric bypass who presented to the ER with headache and dizziness and was found to have a left thalamic intracerebral hemorrhage. Patient was seen and examined at bedside. Somewhat more awake. No acute complaints. States hasn't had a bowel movement in a couple of days. Still NPO, no more nausea. CCU Objective - Vital Signs / Intake & Output Intake and Output (Last 8hrs): Intake & Output 02/19/18 02/20/18 02/20/18 22:59 06:59 14:59 Intake Total 800 1600 400 Output Total 850 1050 Balance -50 550 400 Weight 104.326 kg Intake: IV 800 1600 400 Right Antecubital 200 1000 Oral 0 Output: Urine 850 1050 Urine, Voided 850 1050 Other: # Bowel Movements 0 - Physical Exam Head: Positive for: Atraumatic Pupils: Positive for: PERRL Extroacular Muscles: Positive for: Gaze Palsy Conjunctiva: Positive for: Normal. Negative for: Injected Ears: Positive for: Normal. Negative for: Erythema Mouth: Positive for: Moist Mucous Membranes Pharnyx: Negative for: ERYTHEMA Nose (Internal): Positive for: Normal Inspection Neck: Positive for: Normal Range of Motion. Negative for: Meningeal Signs Respiratory/Chest: Positive for: Clear to Auscultation. Negative for: Respiratory Distress Cardiovascular: Positive for: Regular Rate and Rhythm Abdomen: Positive for: Normal Bowel Sounds. Negative for: Tenderness, Distention Back: Negative for: CVA Tenderness Upper Extremity: Positive for: Normal Inspection, Capillary Refill < 2s. Negative for: Cyanosis, Swelling, Erythema Lower Extremity: Positive for: Normal Inspection, Capillary Refill < 2 s. Negative for: Edema, Tenderness, Swelling, Erythema Neurological: Positive for: Other (AAOx4, SCOTT, 5/5 strength throughout, downgoing Babinskis, no clonus, follows simple and complex ). Negative for: CN II-XII Intact Skin: Positive for: Warm, Dry Psychiatric: Positive for: Alert, Oriented x 3, Normal Concentration - Medications Active Medications: Active Medications Generic Name Dose Route Start Last Admin Trade Name Freq PRN Reason Stop Dose Admin Acetaminophen 650 mg 02/19/18 16:06 Tylenol 650 Mg Supp RC Q6H PRN Fever >100.4 F Nicardipine HCl 20 mg in 200 mls @ 50 mls/hr 02/19/18 14:51 02/20/18 09:59 Cardene Iv Premix IV 12.5 mg/hr .Q4H PRN 125 mls/hr TITRATE PER MD ORDER Administration Protocol 5 MG/HR Potassium Chloride 20 meq in 100 mls @ 50 mls/hr 02/20/18 08:19 02/20/18 09: 57 Potassium Chloride 20 Meq/100 Ml IVPB 02/20/18 10:18 50 mls/hr ONCE ONE Administration Ondansetron HCl 4 mg 02/19/18 20:29 02/19/18 20:38 Zofran Inj IVP 4 mg Q6H PRN Administration Nausea/Vomiting Pantoprazole Sodium 40 mg 02/20/18 10:00 Protonix Inj IVP DAILY [facility] Polyethylene Glycol 17 gm 02/20/18 10:00 Miralax PO DAILY [facility] - Patient Studies Lab Studies: Lab Studies 02/20/18 02/20/18 02/20/18 Range/Units 05:30 05:30 05:30 WBC 10.8 D (4.5-11.0) 10^3/ul RBC 4.91 (3.5-6.1) 10^6/uL Hgb 12.6 (12.0-16.0) g/dL Hct 38.5 (36.0-48.0) % MCV 78.4 L (80.0-105.0) fl MCH 25.7 (25.0-35.0) pg MCHC 32.7 (31.0-37.0) g/dl RDW 14.9 H (11.5-14.5) % Plt Count 476 H (120.0-450.0) 10^3/uL MPV 9.2 (7.0-11.0) fl Gran % 80.7 H (50.0-68.0) % Lymph % (Auto) 14.1 L (22.0-35.0) % [place] % (Auto) 4.3 (1.0-6.0) % Eos % (Auto) 0.5 L (1.5-5.0) % Baso % (Auto) 0.4 (0.0-3.0) % Gran # 8.69 H (1.4-6.5) Lymph # (Auto) 1.5 (1.2-3.4) [place] # (Auto) 0.5 (0.1-0.6) Eos # (Auto) 0.1 (0.0-0.7) Baso # (Auto) 0.04 (0.0-2.0) K/mm3 Sodium 143 (132-148) mmol/L Potassium 3.4 L (3.6-5.0) mmol/L Chloride 104 (98-107) mmol/L Carbon Dioxide 24 (21-33) mmol/L Anion Gap 18 (10-20) BUN 12 (7-21) mg/dL Creatinine 0.9 (0.7-1.2) mg/dl Est GFR ( Amer) > 60 Est GFR (Non-Af Amer) > 60 POC Glucose (mg/dL) (65-110) mg/dL Random Glucose 154 H (70-110) mg/dL Calcium 9.2 (8.4-10.5) mg/dL Phosphorus 3.3 (2.5-4.5) mg/dL Magnesium 1.9 (1.7-2.2) mg/dL Total Bilirubin 0.6 (0.2-1.3) mg/dL AST 34 (14-36) U/L ALT 27 (7-56) U/L Alkaline Phosphatase 92 (38-126) U/L Total Protein 8.3 (5.8-8.3) g/dL Albumin 4.4 (3.0-4.8) g/dL Globulin 4.0 gm/dL Albumin/Globulin Ratio 1.1 (1.1-1.8) Triglycerides 51 (35-160) mg/dL Cholesterol 178 (130-200) mg/dL LDL Cholesterol Direct 97 (0-129) mg/dL HDL Cholesterol 49 (29-60) mg/dL Free T4 0.89 (0.78-2.19) ng/dL TSH 3rd Generation 0.27 L (0.46-4.68) mIU/mL 02/19/18 02/19/18 Range/Units 21:36 18:31 WBC (4.5-11.0) 10^3/ul RBC (3.5-6.1) 10^6/uL Hgb (12.0-16.0) g/dL Hct (36.0-48.0) % MCV (80.0-105.0) fl MCH (25.0-35.0) pg MCHC (31.0-37.0) g/dl RDW (11.5-14.5) % Plt Count (120.0-450.0) 10^3/uL MPV (7.0-11.0) fl Gran % (50.0-68.0) % Lymph % (Auto) (22.0-35.0) % [place] % (Auto) (1.0-6.0) % Eos % (Auto) (1.5-5.0) % Baso % (Auto) (0.0-3.0) % Gran # (1.4-6.5) Lymph # (Auto) (1.2-3.4) [place] # (Auto) (0.1-0.6) Eos # (Auto) (0.0-0.7) Baso # (Auto) (0.0-2.0) K/mm3 Sodium (132-148) mmol/L Potassium (3.6-5.0) mmol/L Chloride (98-107) mmol/L Carbon Dioxide (21-33) mmol/L Anion Gap (10-20) BUN (7-21) mg/dL Creatinine (0.7-1.2) mg/dl Est GFR ( Amer) Est GFR (Non-Af Amer) POC Glucose (mg/dL) 132 H 122 H (65-110) mg/dL Random Glucose (70-110) mg/dL Calcium (8.4-10.5) mg/dL Phosphorus (2.5-4.5) mg/dL Magnesium (1.7-2.2) mg/dL Total Bilirubin (0.2-1.3) mg/dL AST (14-36) U/L ALT (7-56) U/L Alkaline Phosphatase (38-126) U/L Total Protein (5.8-8.3) g/dL Albumin (3.0-4.8) g/dL Globulin gm/dL Albumin/Globulin Ratio (1.1-1.8) Triglycerides (35-160) mg/dL Cholesterol (130-200) mg/dL LDL Cholesterol Direct (0-129) mg/dL HDL Cholesterol (29-60) mg/dL Free T4 (0.78-2.19) ng/dL TSH 3rd Generation (0.46-4.68) mIU/mL Laboratory Results - last 24 hr 02/19/18 02/19/18 02/20/18 18:31 21:36 05:30 WBC 10.8 D RBC 4.91 Hgb 12.6 Hct 38.5 MCV 78.4 L MCH 25.7 MCHC 32.7 RDW 14.9 H Plt Count 476 H MPV 9.2 Gran % 80.7 H Lymph % (Auto) 14.1 L [place] % (Auto) 4.3 Eos % (Auto) 0.5 L Baso % (Auto) 0.4 Gran # 8.69 H Lymph # (Auto) 1.5 [place] # (Auto) 0.5 Eos # (Auto) 0.1 Baso # (Auto) 0.04 Sodium Potassium Chloride Carbon Dioxide Anion Gap BUN Creatinine Est GFR ( Amer) Est GFR (Non-Af Amer) POC Glucose (mg/dL) 122 H 132 H Random Glucose Calcium Phosphorus Magnesium Total Bilirubin AST ALT Alkaline Phosphatase Total Protein Albumin Globulin Albumin/Globulin Ratio Triglycerides Cholesterol LDL Cholesterol Direct HDL Cholesterol Free T4 TSH 3rd Generation 02/20/18 02/20/18 05:30 05:30 WBC RBC Hgb Hct MCV MCH MCHC RDW Plt Count MPV Gran % Lymph % (Auto) [place] % (Auto) Eos % (Auto) Baso % (Auto) Gran # Lymph # (Auto) [place] # (Auto) Eos # (Auto) Baso # (Auto) Sodium 143 Potassium 3.4 L Chloride 104 Carbon Dioxide 24 Anion Gap 18 BUN 12 Creatinine 0.9 Est GFR ( Amer) > 60 Est GFR (Non-Af Amer) > 60 POC Glucose (mg/dL) Random Glucose 154 H Calcium 9.2 Phosphorus 3.3 Magnesium 1.9 Total Bilirubin 0.6 AST 34 ALT 27 Alkaline Phosphatase 92 Total Protein 8.3 Albumin 4.4 Globulin 4.0 Albumin/Globulin Ratio 1.1 Triglycerides 51 Cholesterol 178 LDL Cholesterol Direct 97 HDL Cholesterol 49 Free T4 0.89 TSH 3rd Generation 0.27 L Fingerstick Blood Sugar Results: 122 Assessment/Plan - Assessment and Plan (Free Text) Assessment: 52 year old female with a PMH of HTN, current smoker, and gastric bypass who presented to the ER with headache and dizziness and was found to have a left thalamic intracerebral hemorrhage. Plan: Neurological CT head reviewed - acute hemorrhage in the left thalamus 1.8x 1.5x 1.[address] showed no major difference MRA unremarkable Neurosurgery consulted, no surgical intervention Neuro following, recs appreciated, discussed with resident On cardene gtt for blood pressure maintenance, titrate Pending repeat swallow eval Maintain HOB elevation 35' Cont Neuro checks Cont Aspiration precautions Pulmnologic Maintain SPO2 > 90 % 2L NC PRN Cardiovascular HD stable Maintain MAP > 65 On cardene gtt, maintain SBP <140 Echo pending Gastrointestinal Cont NPO Pending repeat swallow eval Renal Replete K Making urine appropriately Infectious disease Afebrile No leukocytosis Endocronologic Maintain euglycemic Cont fingersticks Hematologic No active bleeding HD stable Following GI/DVT ppx: protonix/SCDs Patient was seen and examined and case was discussed at length with attending physician. - Date & Time Date: 02/20/18 Time: 07:00 <Andrew Burris - Last Filed: 02/20/18 12:52> CCU Objective - Vital Signs / Intake & Output Vital Signs (Last 4 hours): Vital Signs Pulse Resp BP Pulse Ox 02/20/18 11:01 86 24 149/79 93 L 02/20/18 11:00 82 32 H 96 02/20/18 10:50 77 24 95 02/20/18 10:40 99 H 46 H 98 02/20/18 10:39 104 H 29 H 137/50 L 94 L 02/20/18 10:37 99 H 54 H 124/87 98 02/20/18 10:30 81 20 99 02/20/18 10:20 67 30 H 96 02/20/18 10:12 66 33 H 137/68 94 L 02/20/18 10:10 73 39 H 97 02/20/18 10:01 67 28 H 137/66 95 02/20/18 10:00 69 30 H 96 02/20/18 09:50 91 H 28 H 98 02/20/18 09:40 80 36 H 97 05/07/18 09:30 68 34 H 98 02/20/18 09:20 74 30 H 98 02/20/18 09:10 74 33 H 98 02/20/18 09:01 69 33 H 132/65 94 L 02/20/18 09:00 67 41 H 97 Intake and Output (Last 8hrs): Intake & Output 02/19/18 02/20/18 02/20/18 22:59 06:59 14:59 Intake Total 800 1600 600 Output Total 850 1050 Balance -50 550 600 Weight 230 lb Intake: IV 800 1600 600 Right Antecubital 200 1000 Oral 0 Output: Urine 850 1050 Urine, Voided 850 1050 Other: # Bowel Movements 0 - Medications Active Medications: Active Medications Generic Name Dose Route Start Last Admin Trade Name Freq PRN Reason Stop Dose Admin Acetaminophen 650 mg 02/19/18 16:06 Tylenol 650 Mg Supp RC Q6H PRN Fever >100.4 F Amlodipine Besylate 5 mg 02/20/18 12:45 Norvasc PO DAILY [facility] Nicardipine HCl 20 mg in 200 mls @ 50 mls/hr 02/19/18 14:51 02/20/18 12:32 Cardene Iv Premix IV 12.5 mg/hr .Q4H PRN 125 mls/hr TITRATE PER MD ORDER Administration Protocol 5 MG/HR Ondansetron HCl 4 mg 02/19/18 20:29 02/19/18 20:38 Zofran Inj IVP 4 mg Q6H PRN Administration Nausea/Vomiting Pantoprazole Sodium 40 mg 02/20/18 10:00 Protonix Inj IVP DAILY [facility] Polyethylene Glycol 17 gm 02/20/18 10:00 Miralax PO DAILY [facility] - Patient Studies Lab Studies: Lab Studies 02/20/18 02/20/18 02/20/18 Range/Units 11:17 07:16 05:30 WBC (4.5-11.0) 10^3/ul RBC (3.5-6.1) 10^6/uL Hgb (12.0-16.0) g/dL Hct (36.0-48.0) % MCV (80.0-105.0) fl MCH (25.0-35.0) pg MCHC (31.0-37.0) g/dl RDW (11.5-14.5) % Plt Count (120.0-450.0) 10^3/uL MPV (7.0-11.0) fl Gran % (50.0-68.0) % Lymph % (Auto) (22.0-35.0) % [place] % (Auto) (1.0-6.0) % Eos % (Auto) (1.5-5.0) % Baso % (Auto) (0.0-3.0) % Gran # (1.4-6.5) Lymph # (Auto) (1.2-3.4) [place] # (Auto) (0.1-0.6) Eos # (Auto) (0.0-0.7) Baso # (Auto) (0.0-2.0) K/mm3 Sodium (132-148) mmol/L Potassium (3.6-5.0) mmol/L Chloride (98-107) mmol/L Carbon Dioxide (21-33) mmol/L Anion Gap (10-20) BUN (7-21) mg/dL Creatinine (0.7-1.2) mg/dl Est GFR ( Amer) Est GFR (Non-Af Amer) POC Glucose (mg/dL) 126 H 137 H (65-110) mg/dL Random Glucose (70-110) mg/dL Calcium (8.4-10.5) mg/dL Phosphorus (2.5-4.5) mg/dL Magnesium (1.7-2.2) mg/dL Total Bilirubin (0.2-1.3) mg/dL AST (14-36) U/L ALT (7-56) U/L Alkaline Phosphatase (38-126) U/L Total Protein (5.8-8.3) g/dL Albumin (3.0-4.8) g/dL Globulin gm/dL Albumin/Globulin Ratio (1.1-1.8) Triglycerides (35-160) mg/dL Cholesterol (130-200) mg/dL LDL Cholesterol Direct (0-129) mg/dL HDL Cholesterol (29-60) mg/dL Free T4 0.89 (0.78-2.19) ng/dL TSH 3rd Generation 0.27 L (0.46-4.68) mIU/mL 02/20/18 02/20/18 02/19/18 Range/Units 05:30 05:30 21:36 WBC 10.8 D (4.5-11.0) 10^3/ul RBC 4.91 (3.5-6.1) 10^6/uL Hgb 12.6 (12.0-16.0) g/dL Hct 38.5 (36.0-48.0) % MCV 78.4 L (80.0-105.0) fl MCH 25.7 (25.0-35.0) pg MCHC 32.7 (31.0-37.0) g/dl RDW 14.9 H (11.5-14.5) % Plt Count 476 H (120.0-450.0) 10^3/uL MPV 9.2 (7.0-11.0) fl Gran % 80.7 H (50.0-68.0) % Lymph % (Auto) 14.1 L (22.0-35.0) % [place] % (Auto) 4.3 (1.0-6.0) % Eos % (Auto) 0.5 L (1.5-5.0) % Baso % (Auto) 0.4 (0.0-3.0) % Gran # 8.69 H (1.4-6.5) Lymph # (Auto) 1.5 (1.2-3.4) [place] # (Auto) 0.5 (0.1-0.6) Eos # (Auto) 0.1 (0.0-0.7) Baso # (Auto) 0.04 (0.0-2.0) K/mm3 Sodium 143 (132-148) mmol/L Potassium 3.4 L (3.6-5.0) mmol/L Chloride 104 (98-107) mmol/L Carbon Dioxide 24 (21-33) mmol/L Anion Gap 18 (10-20) BUN 12 (7-21) mg/dL Creatinine 0.9 (0.7-1.2) mg/dl Est GFR ( Amer) > 60 Est GFR (Non-Af Amer) > 60 POC Glucose (mg/dL) 132 H (65-110) mg/dL Random Glucose 154 H (70-110) mg/dL Calcium 9.2 (8.4-10.5) mg/dL Phosphorus 3.3 (2.5-4.5) mg/dL Magnesium 1.9 (1.7-2.2) mg/dL Total Bilirubin 0.6 (0.2-1.3) mg/dL AST 34 (14-36) U/L ALT 27 (7-56) U/L Alkaline Phosphatase 92 (38-126) U/L Total Protein 8.3 (5.8-8.3) g/dL Albumin 4.4 (3.0-4.8) g/dL Globulin 4.0 gm/dL Albumin/Globulin Ratio 1.1 (1.1-1.8) Triglycerides 51 (35-160) mg/dL Cholesterol 178 (130-200) mg/dL LDL Cholesterol Direct 97 (0-129) mg/dL HDL Cholesterol 49 (29-60) mg/dL Free T4 (0.78-2.19) ng/dL TSH 3rd Generation (0.46-4.68) mIU/mL 02/19/18 Range/Units 18:31 WBC (4.5-11.0) 10^3/ul RBC (3.5-6.1) 10^6/uL Hgb (12.0-16.0) g/dL Hct (36.0-48.0) % MCV (80.0-105.0) fl MCH (25.0-35.0) pg MCHC (31.0-37.0) g/dl RDW (11.5-14.5) % Plt Count (120.0-450.0) 10^3/uL MPV (7.0-11.0) fl Gran % (50.0-68.0) % Lymph % (Auto) (22.0-35.0) % [place] % (Auto) (1.0-6.0) % Eos % (Auto) (1.5-5.0) % Baso % (Auto) (0.0-3.0) % Gran # (1.4-6.5) Lymph # (Auto) (1.2-3.4) [place] # (Auto) (0.1-0.6) Eos # (Auto) (0.0-0.7) Baso # (Auto) (0.0-2.0) K/mm3 Sodium (132-148) mmol/L Potassium (3.6-5.0) mmol/L Chloride (98-107) mmol/L Carbon Dioxide (21-33) mmol/L Anion Gap (10-20) BUN (7-21) mg/dL Creatinine (0.7-1.2) mg/dl Est GFR ( Amer) Est GFR (Non-Af Amer) POC Glucose (mg/dL) 122 H (65-110) mg/dL Random Glucose (70-110) mg/dL Calcium (8.4-10.5) mg/dL Phosphorus (2.5-4.5) mg/dL Magnesium (1.7-2.2) mg/dL Total Bilirubin (0.2-1.3) mg/dL AST (14-36) U/L ALT (7-56) U/L Alkaline Phosphatase (38-126) U/L Total Protein (5.8-8.3) g/dL Albumin (3.0-4.8) g/dL Globulin gm/dL Albumin/Globulin Ratio (1.1-1.8) Triglycerides (35-160) mg/dL Cholesterol (130-200) mg/dL LDL Cholesterol Direct (0-129) mg/dL HDL Cholesterol (29-60) mg/dL Free T4 (0.78-2.19) ng/dL TSH 3rd Generation (0.46-4.68) mIU/mL Laboratory Results - last 24 hr 02/19/18 02/19/18 02/20/18 18:31 21:36 05:30 WBC 10.8 D RBC 4.91 Hgb 12.6 Hct 38.5 MCV 78.4 L MCH 25.7 MCHC 32.7 RDW 14.9 H Plt Count 476 H MPV 9.2 Gran % 80.7 H Lymph % (Auto) 14.1 L [place] % (Auto) 4.3 Eos % (Auto) 0.5 L Baso % (Auto) 0.4 Gran # 8.69 H Lymph # (Auto) 1.5 [place] # (Auto) 0.5 Eos # (Auto) 0.1 Baso # (Auto) 0.04 Sodium Potassium Chloride Carbon Dioxide Anion Gap BUN Creatinine Est GFR ( Amer) Est GFR (Non-Af Amer) POC Glucose (mg/dL) 122 H 132 H Random Glucose Calcium Phosphorus Magnesium Total Bilirubin AST ALT Alkaline Phosphatase Total Protein Albumin Globulin Albumin/Globulin Ratio Triglycerides Cholesterol LDL Cholesterol Direct HDL Cholesterol Free T4 TSH 3rd Generation 02/20/18 02/20/18 02/20/18 05:30 05:30 07:16 WBC RBC Hgb Hct MCV MCH MCHC RDW Plt Count MPV Gran % Lymph % (Auto) [place] % (Auto) Eos % (Auto) Baso % (Auto) Gran # Lymph # (Auto) [place] # (Auto) Eos # (Auto) Baso # (Auto) Sodium 143 Potassium 3.4 L Chloride 104 Carbon Dioxide 24 Anion Gap 18 BUN 12 Creatinine 0.9 Est GFR ( Amer) > 60 Est GFR (Non-Af Amer) > 60 POC Glucose (mg/dL) 137 H Random Glucose 154 H Calcium 9.2 Phosphorus 3.3 Magnesium 1.9 Total Bilirubin 0.6 AST 34 ALT 27 Alkaline Phosphatase 92 Total Protein 8.3 Albumin 4.4 Globulin 4.0 Albumin/Globulin Ratio 1.1 Triglycerides 51 Cholesterol 178 LDL Cholesterol Direct 97 HDL Cholesterol 49 Free T4 0.89 TSH 3rd Generation 0.27 L 02/20/18 11:17 WBC RBC Hgb Hct MCV MCH MCHC RDW Plt Count MPV Gran % Lymph % (Auto) [place] % (Auto) Eos % (Auto) Baso % (Auto) Gran # Lymph # (Auto) [place] # (Auto) Eos # (Auto) Baso # (Auto) Sodium Potassium Chloride Carbon Dioxide Anion Gap BUN Creatinine Est GFR ( Amer) Est GFR (Non-Af Amer) POC Glucose (mg/dL) 126 H Random Glucose Calcium Phosphorus Magnesium Total Bilirubin AST ALT Alkaline Phosphatase Total Protein Albumin Globulin Albumin/Globulin Ratio Triglycerides Cholesterol LDL Cholesterol Direct HDL Cholesterol Free T4 TSH 3rd Generation Assessment/Plan - Assessment and Plan (Free Text) Plan: Patient seen and examined with resident, agree with note, with following additions/exceptions: Patient is 52yo female with PMhx of obesity, s/p gastric bypass surgery, smoker , presents with dizziness, headache, and L thalamic ICH. Currently afebrile, HD stable, on Cardene drip. Neurology and neurosurgery following Repeat CTH earlier this morning, grossly unchanged No surgical intervention at this time as per NSG ICH HTN, malignant Obesity Hx Smoking Recommend: - supp o2 as needed - BP control, Cardene drip, SBP <140 - Keppra for seizure ppx - Neurology, NSG follow up - repeat CT head in the morning - MRA brain - Speech swallow eval - ECHO - GI ppx - DVT ppx, SCDs - monitor in ICU
--- NOTE | 2018-02-20 10:58 | CP.PCM.PN ---
<Haleigh Patel - Last Filed: 02/20/18 18:38> Subjective - Date & Time of Evaluation Date of Evaluation: 02/20/18 Time of Evaluation: 07:30 - Subjective Subjective: Haleigh Patel DO, PGY-1 Patient seen and examined at [facility]. Patient vomited once overnight and had an episode of wretching. Also repeat head CT was ordered due to altered mental status which was reviewed and showed interval change. Patient denied any complaints at the time of the encounter. ICU resident and nursing are maintaining a close eye on the patient's mental status which has waxed and waned based on exam and history provided this AM. Objective - Vital Signs/Intake and Output Vital Signs (last 24 hours): Temp Pulse Resp BP Pulse Ox 98 F 70 35 H 116/60 96 02/19/18 16:17 02/20/18 05:50 02/20/18 05:50 02/20/18 05:30 02/20/18 05:50 Intake and Output: 02/20/18 02/20/18 06:59 18:59 Intake Total 1800 400 Output Total 1050 Balance 750 400 - Medications Medications: Current Medications Acetaminophen (Tylenol 650 Mg Supp) 650 mg RC Q6H PRN PRN Reason: Fever >100.4 F Nicardipine HCl (Cardene Iv Premix) 20 mg in 200 mls @ 50 mls/hr IV .Q4H PRN; Protocol; 5 MG/HR PRN Reason: TITRATE PER MD ORDER Last Admin: 02/20/18 09:59 Dose: 12.5 mg/hr, 125 mls/hr Ondansetron HCl (Zofran Inj) 4 mg IVP Q6H PRN PRN Reason: Nausea/Vomiting Last Admin: 02/19/18 20:38 Dose: 4 mg Pantoprazole Sodium (Protonix Inj) 40 mg IVP DAILY [facility] Polyethylene Glycol (Miralax) 17 gm PO DAILY [facility] - Labs Labs: 02/20/18 05:30 02/20/18 05:30 PT 12.7 SECONDS (9.4-12.5) H 02/19/18 13:05 INR 1.11 (0.93-1.08) H 02/19/18 13:05 APTT 33.7 Seconds (25.1-36.5) 02/19/18 13:05 - Constitutional Appears: Non-toxic - Head Exam Head Exam: ATRAUMATIC, NORMOCEPHALIC - Eye Exam Additional comments: superior gaze palsy - ENT Exam ENT Exam: Mucous Membranes Moist - Neck Exam Neck Exam: Normal Inspection - Respiratory Exam Respiratory Exam: Clear to Ausculation Bilateral, NORMAL BREATHING PATTERN. absent: Accessory Muscle Use - Cardiovascular Exam Cardiovascular Exam: RRR, +S1, +S2 - GI/Abdominal Exam GI & Abdominal Exam: Soft, Normal Bowel Sounds - Extremities Exam Extremities Exam: Normal Capillary Refill, Normal Inspection. absent: Calf Tenderness - Neurological Exam Neurological Exam: Awake Additional comments: patient able to follow commands, move all extremities - Skin Skin Exam: Dry, Intact, Normal Color, Warm Assessment and Plan - Assessment and Plan (Free Text) Assessment: 52yo female with a past medical history of hypertension who presented to the ED with complaints of headache and dizziness since the morning Patient found to have acute intraparenchymal hemmorhage on head CT and was transferred to ICU for further monitoring. On cardene drip, titration to goal BP per ICU team. Patient also started on amlodipine 5 mg. Neurosurgery recommends repeat CT in the AM to monitor for interval change. Plan: Acute CVA -Head CT: acute hemorrhage in medial aspect of the L thalamus near the midline. Appears to extend into the 3rd ventricle. Hemorrhage measures 18mm AP x 15mm wide by 13mm in height. -Head MRA states "as seen on earlier CT study there is a left thalamic hemmorhage extending into the upper midbrain. There is no evidence of a vascular malformation or an aneurysm in this region." Otherwise, impression reads as negative MR angiography of the brain. - follow up labs: K repleted -f/u Echo -Cardene gtt, titrate per ICU team -maintain euthermia and euglycemia -speech/swallow language pathologist impression reads as patient demonstrates no overt aphasia, dysarthria or apraxia at this time. She has very mild R labial weakness, that does not overtly affect speaking. -PT/OT evaluation -Aspiration precautions -Seizure precautions -Neurocheck -HoB at 30 degrees -VTE ppx c/i -Neurology & Neurosurgery consulted, recommendations appreciated Hx of HTN -counselling psychologist patient on importance of medication compliance -Cardene gtt, titration as per ICU team. Hx of tobacco abuse -smoking cessaion counseling GI ppx: Protonix ivp DVT ppx: SCDs Diet: Advance diet as NEWSPAPER JOURNALIST recommends; defer to ICU team given the waxing and waning mental status of patient. Initial bedside swallowing evaluation and initial recommendations regarding p.o. diet and liquid consistencies. NEWSPAPER JOURNALIST will recommend to try p.o. feedings in the morning, as tolerated. NEWSPAPER JOURNALIST to follow up to see if diet consistency can be advanced. Dispo: monitor in MICU Discussed with Dr. Iqra Patel PGY-1 <Brendan Escalona - Last Filed: 02/23/18 13:59> Objective - Vital Signs/Intake and Output Vital Signs (last 24 hours): Temp Pulse Resp BP Pulse Ox 98.6 F 70 18 156/90 H 98 02/23/18 08:36 02/23/18 11:57 02/23/18 08:36 02/23/18 11:57 02/23/18 08:36 Intake and Output: 02/23/18 02/23/18 06:59 18:59 Intake Total 120 Output Total 300 Balance -180 - Medications Medications: Current Medications Acetaminophen (Tylenol 325mg Tab) 650 mg PO Q4 PRN PRN Reason: Fever >100.4 F Last Admin: 02/22/18 21:56 Dose: 650 mg Amantadine HCl (Amantadine 100 Mg Cap) 100 mg PO DAILY [facility] Last Admin: 02/23/18 10:35 Dose: 100 mg Amlodipine Besylate (Norvasc) 10 mg PO DAILY [facility] Last Admin: 02/23/18 09:59 Dose: 10 mg Hydralazine HCl (Apresoline) 10 mg IVP Q6H PRN PRN Reason: SBP greater than 140 Metoprolol Tartrate (Lopressor) 12.5 mg PO BID [facility] Last Admin: 02/23/18 10:52 Dose: 12.5 mg Ondansetron HCl (Zofran Inj) 4 mg IVP Q6H PRN PRN Reason: Nausea/Vomiting Last Admin: 02/21/18 02:50 Dose: 4 mg Pantoprazole Sodium (Protonix Ec Tab) 40 mg PO ACB [facility] Last Admin: 02/23/18 09:59 Dose: 40 mg Polyethylene Glycol (Miralax) 17 gm PO DAILY [facility] Last Admin: 02/23/18 09:58 Dose: 17 gm Valproate Sodium (Depakene Cap) 500 mg PO DAILY [facility] - Labs Labs: 02/23/18 06:00 02/23/18 06:30 PT 12.7 SECONDS (9.4-12.5) H 02/19/18 13:05 INR 1.11 (0.93-1.08) H 02/19/18 13:05 APTT 33.7 Seconds (25.1-36.5) 02/19/18 13:05 Attending/Attestation - Attestation I have personally seen and examined this patient.: Yes I have fully participated in the care of the patient.: Yes I have reviewed all pertinent clinical information, including history, physical exam and plan: Yes Notes (Text): I have seen and examined patient with the resident. Agree with the note dictated above with the following additions/exceptions: Briefly this is 52 year old female with history of tobacco use, morbid obesity (BMI 43), s/p gastric by pass surgery who was admitted for evaluation of dizziness, headache and found to have left thalamic intra cranial hemorrhage. Her BP has improved with cardene drip. 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 Neurologist and neurosurgeon on board. Maintain normothermia, normoglycemia and aggressive BP control. Swallow eval appreciated. Keep HOB elevated at 30 degrees. Morphine prn pain. Echo pending. PT eval pending. Tobacco cessation counselling provided. Upon discharge patient will follow up with Dr Gaitan.
--- NOTE | 2018-02-20 11:18 | CP.PCM.CON ---
History of Present Illness - History of Present Illness History of Present Illness: Dictated relatively min deficits for this type of thalamomesencephalic hemorrhage no hydrocephalus on second CT suggest f/u CT AM Past Patient History - Infectious Disease Hx of Infectious Diseases: None - Past Social History Smoking Status: Current Some Days Smoker - CARDIAC Hx Hypertension: Yes - MUSCULOSKELETAL/RHEUMATOLOGICAL Hx Falls: No - PSYCHIATRIC Hx Substance Use: No - SURGICAL HISTORY Hx Hysterectomy: Yes - ANESTHESIA Hx Anesthesia Reactions: No Hx Malignant Hyperthermia: No Meds Allergies/Adverse Reactions: Allergies Allergy/AdvReac Type Severity Reaction Status Date / Time diphenhydramine Allergy RASH Verified 02/19/18 13:06 [From Benadryl] seafood Allergy RASH Uncoded 02/19/18 13:06 - Medications Medications: Current Medications Acetaminophen (Tylenol 650 Mg Supp) 650 mg RC Q6H PRN PRN Reason: Fever >100.4 F Nicardipine HCl (Cardene Iv Premix) 20 mg in 200 mls @ 50 mls/hr IV .Q4H PRN; Protocol; 5 MG/HR PRN Reason: TITRATE PER MD ORDER Last Admin: 02/20/18 09:59 Dose: 12.5 mg/hr, 125 mls/hr Ondansetron HCl (Zofran Inj) 4 mg IVP Q6H PRN PRN Reason: Nausea/Vomiting Last Admin: 02/19/18 20:38 Dose: 4 mg Pantoprazole Sodium (Protonix Inj) 40 mg IVP DAILY [facility] Polyethylene Glycol (Miralax) 17 gm PO DAILY [facility] Results - Vital Signs Recent Vital Signs: Last Vital Signs Temp 98 F 02/19/18 16:17 Pulse 86 02/20/18 11:01 Resp 24 02/20/18 11:01 BP 149/79 02/20/18 11:01 Pulse Ox 93 L 02/20/18 11:01 - Labs Result Diagrams: 02/20/18 05:30 02/20/18 05:30 Labs: Laboratory Results - last 24 hr 02/19/18 02/19/18 02/20/18 18:31 21:36 05:30 WBC 10.8 D RBC 4.91 Hgb 12.6 Hct 38.5 MCV 78.4 L MCH 25.7 MCHC 32.7 RDW 14.9 H Plt Count 476 H MPV 9.2 Gran % 80.7 H Lymph % (Auto) 14.1 L Routt % (Auto) 4.3 Eos % (Auto) 0.5 L Baso % (Auto) 0.4 Gran # 8.69 H Lymph # (Auto) 1.5 [place]t # (Auto) 0.5 Eos # (Auto) 0.1 Baso # (Auto) 0.04 Sodium Potassium Chloride Carbon Dioxide Anion Gap BUN Creatinine Est GFR ( Amer) Est GFR (Non-Af Amer) POC Glucose (mg/dL) 122 H 132 H Random Glucose Calcium Phosphorus Magnesium Total Bilirubin AST ALT Alkaline Phosphatase Total Protein Albumin Globulin Albumin/Globulin Ratio Triglycerides Cholesterol LDL Cholesterol Direct HDL Cholesterol Free T4 TSH 3rd Generation 02/20/18 02/20/18 02/20/18 05:30 05:30 07:16 WBC RBC Hgb Hct MCV MCH MCHC RDW Plt Count MPV Gran % Lymph % (Auto) Routt % (Auto) Eos % (Auto) Baso % (Auto) Gran # Lymph # (Auto) Routt # (Auto) Eos # (Auto) Baso # (Auto) Sodium 143 Potassium 3.4 L Chloride 104 Carbon Dioxide 24 Anion Gap 18 BUN 12 Creatinine 0.9 Est GFR ( Amer) > 60 Est GFR (Non-Af Amer) > 60 POC Glucose (mg/dL) 137 H Random Glucose 154 H Calcium 9.2 Phosphorus 3.3 Magnesium 1.9 Total Bilirubin 0.6 AST 34 ALT 27 Alkaline Phosphatase 92 Total Protein 8.3 Albumin 4.4 Globulin 4.0 Albumin/Globulin Ratio 1.1 Triglycerides 51 Cholesterol 178 LDL Cholesterol Direct 97 HDL Cholesterol 49 Free T4 0.89 TSH 3rd Generation 0.27 L
[2018-02-20] MEDS: POLYETHYLENE GLYCOL 3350 17 GM/Dose PACKET PO SCH (15:55)
[2018-02-21] MEDS: Nicardipine 20 MG/200 ML 20 MG/200 ML BAG IV PRN ×3 (00:39→05:30)
[2018-02-21 06:51] LABS: BASO # 0.03 K/mm3 (0.0-2.0); BASO % 0.3 % (0.0-3.0); EOS # 0.1 (0.0-0.7); EOS % 0.7 % (1.5-5.0); GRAN # 9.39 (1.4-6.5); HEMOGLOBIN 12.9 g/dL (12.0-16.0); LYMPH # 1.7 (1.2-3.4); LYMPH % 14.3 % (22.0-35.0); MEAN CELL VOLUME 78.1 fl (80.0-105.0); MEAN CORPUSCULAR HEMOGLOBIN 25.6 pg (25.0-35.0); MEAN CORPUSCULAR HGB CONC 32.8 g/dl (31.0-37.0); MEAN PLATELET VOLUME 8.7 fl (7.0-11.0); MONO # 0.7 (0.1-0.6); MONO % 5.7 % (1.0-6.0); RBC 5.03 10^6/uL (3.5-6.1); RED CELL DISTRIBUTION WIDTH 14.9 % (11.5-14.5); WHITE BLOOD COUNT 11.9 10^3/ul (4.5-11.0)
[2018-02-21 07:08] LABS: ALBUMIN 4.3 g/dL (3.0-4.8); ALT/SGPT 23 U/L (7-56); AST/SGOT 37 U/L (14-36); BLOOD UREA NITROGEN 16 mg/dL (7-21); CALCIUM 9.4 mg/dL (8.4-10.5); GFR AFRICAN-AMERICAN > 60; GFR NON-AFRICAN AMERICAN 58
--- NOTE | 2018-02-21 08:05 | CP.PCM.PN ---
<Tanisha Arroyo - Last Filed: 02/21/18 14:21> Subjective - Date & Time of Evaluation Date of Evaluation: 02/21/18 Time of Evaluation: 08:06 - Subjective Subjective: PGY2 Neurology progress note for Dr. Dumont Patient seen and examined at bedside. Patient was unable to sleep well overnight and complained of a headache. This AM she was ao x 3 and sleepy. she has her eye patch on which she states helps with her dizziness. This AM patient denied acute complaints of headache, dizziness, chest pain, SOB, cough, abd pain , nausea, vomiting, bowel/bladder complaints, pain/swelling in her legs b/l. She is tolerating her diet and making good UO. Objective - Vital Signs/Intake and Output Vital Signs (last 24 hours): Temp Pulse Resp BP Pulse Ox 98.5 F 71 28 H 111/50 L 95 02/21/18 04:00 02/21/18 07:01 02/21/18 07:01 02/21/18 07:01 02/21/18 07:01 Intake and Output: 02/21/18 02/21/18 06:59 18:59 Intake Total 2300 100 Output Total 300 Balance 2000 100 - Medications Medications: Current Medications Acetaminophen (Tylenol 650 Mg Supp) 650 mg RC Q6H PRN PRN Reason: Fever >100.4 F Acetaminophen (Tylenol 325mg Tab) 650 mg PO Q4 PRN PRN Reason: Fever >100.4 F Last Admin: 02/21/18 00:54 Dose: 650 mg Amlodipine Besylate (Norvasc) 5 mg PO DAILY [facility] Last Admin: 02/20/18 15:43 Dose: 5 mg Nicardipine HCl (Cardene Iv Premix) 20 mg in 200 mls @ 50 mls/hr IV .Q4H PRN; Protocol; 5 MG/HR PRN Reason: TITRATE PER MD ORDER Last Titration: 02/21/18 07:21 Dose: 2.5 mg/hr, 25 mls/hr Ondansetron HCl (Zofran Inj) 4 mg IVP Q6H PRN PRN Reason: Nausea/Vomiting Last Admin: 02/21/18 02:50 Dose: 4 mg Pantoprazole Sodium (Protonix Inj) 40 mg IVP DAILY [facility] Last Admin: 02/20/18 11:05 Dose: 40 mg Polyethylene Glycol (Miralax) 17 gm PO DAILY [facility] Last Admin: 02/20/18 15:55 Dose: Not Given - Labs Labs: 02/21/18 05:25 02/21/18 05:25 PT 12.7 SECONDS (9.4-12.5) H 02/19/18 13:05 INR 1.11 (0.93-1.08) H 02/19/18 13:05 APTT 33.7 Seconds (25.1-36.5) 02/19/18 13:05 - Constitutional Appears: Non-toxic, No Acute Distress - Head Exam Head Exam: ATRAUMATIC, NORMAL INSPECTION, NORMOCEPHALIC - Eye Exam Eye Exam: Normal appearance, PERRL. absent: Conjunctival injection, EOMI, Scleral icterus - ENT Exam ENT Exam: Mucous Membranes Moist - Neck Exam Neck Exam: Full ROM. absent: Lymphadenopathy - Respiratory Exam Respiratory Exam: NORMAL BREATHING PATTERN. absent: Accessory Muscle Use - Cardiovascular Exam Cardiovascular Exam: +S1, +S2. absent: Murmur - GI/Abdominal Exam GI & Abdominal Exam: Soft, Normal Bowel Sounds - Rectal Exam Rectal Exam: Deferred - Extremities Exam Extremities Exam: Normal Capillary Refill, Normal Inspection. absent: Pedal Edema, Tenderness - Neurological Exam Neurological Exam: Alert, Awake, Oriented x3. absent: CN II-XII Intact, Motor Sensory Deficit Neuro motor strength exam: Left Upper Extremity: 5, Right Upper Extremity: 5, Left Lower Extremity: 5, Right Lower Extremity: 5 Additional comments: slight R sided facial droop upward gaze palsy - Psychiatric Exam Psychiatric exam: Normal Affect, Normal Mood - Skin Skin Exam: Dry, Intact, Normal Color, Warm Assessment and Plan - Assessment and Plan (Free Text) Assessment: 52yo female PMHx HTN admitted for left thalamic intracerebral hemorrhage. Plan: -Head CT this AM: redemonstrated L thalamic hematoma which measures 19.2 x 19mm in greatest dimension. The hematoma compresses the posterior margin of the 3rd ventricle with mild dilatation proximal aspect of the 3rd ventricle as well as the lateral ventricles. Moderate chronic white matter ischemic changes; note that a component of transependymal edema not excluded. Few scattered chronic b/ l basal nuclei lacunar type infarcts. -Echo: mild-mod concentric LVH; EF wnl -MRA: unremarkable -repeat head CT 02/20: no acute changes -Head CT on admission 02/19: acute hemorrhage in medial aspect of the L thalamus near the midline. Appears to extend into the 3rd ventricle. Hemorrhage measures 18mm AP x 15mm wide by 13mm in height. -patient has been off cardene gtt- BP controlled on norvasc. Goal SBP 120- 140mmHg -HoB above 35 degrees -recommend eye patch for left eye -maintain euthermia and euglycemia -Cont Neuro checks -Cont Aspiration precautions -Avoid sedative drugs -Seizure precautions -PT/OT -recommend rehab upon discharge Discussed with Dr. Tim Arroyo PGY2 <Huey Dumont - Last Filed: 02/23/18 18:46> Objective - Vital Signs/Intake and Output Vital Signs (last 24 hours): Temp Pulse Resp BP Pulse Ox 99.0 F 68 19 139/80 99 02/23/18 18:42 02/23/18 17:27 02/23/18 17:27 02/23/18 17:27 02/23/18 17:27 Intake and Output: 02/23/18 02/23/18 06:59 18:59 Intake Total 120 Output Total 300 Balance -180 - Medications Medications: Current Medications Acetaminophen (Tylenol 325mg Tab) 650 mg PO Q4 PRN PRN Reason: Fever >100.4 F Last Admin: 02/22/18 21:56 Dose: 650 mg Amantadine HCl (Amantadine 100 Mg Cap) 100 mg PO DAILY [facility] Last Admin: 02/23/18 10:35 Dose: 100 mg Amlodipine Besylate (Norvasc) 10 mg PO DAILY [facility] Last Admin: 02/23/18 09:59 Dose: 10 mg Hydralazine HCl (Apresoline) 10 mg IVP Q6H PRN PRN Reason: SBP greater than 140 Metoprolol Tartrate (Lopressor) 12.5 mg PO BID [facility] Last Admin: 02/23/18 17:24 Dose: 12.5 mg Ondansetron HCl (Zofran Inj) 4 mg IVP Q6H PRN PRN Reason: Nausea/Vomiting Last Admin: 02/21/18 02:50 Dose: 4 mg Pantoprazole Sodium (Protonix Ec Tab) 40 mg PO ACB [facility] Last Admin: 02/23/18 09:59 Dose: 40 mg Polyethylene Glycol (Miralax) 17 gm PO DAILY [facility] Last Admin: 02/23/18 09:58 Dose: 17 gm Valproate Sodium (Depakene Cap) 500 mg PO DAILY [facility] Last Admin: 02/23/18 14:27 Dose: 500 mg - Labs Labs: 02/23/18 06:00 02/23/18 06:30 PT 12.7 SECONDS (9.4-12.5) H 02/19/18 13:05 INR 1.11 (0.93-1.08) H 02/19/18 13:05 APTT 33.7 Seconds (25.1-36.5) 02/19/18 13:05 Attending/Attestation - Attestation I have personally seen and examined this patient.: Yes I have fully participated in the care of the patient.: Yes I have reviewed all pertinent clinical information, including history, physical exam and plan: Yes
--- NOTE | 2018-02-21 08:06 | CP.PCM.PN ---
<JorgeHaleigh - Last Filed: 02/21/18 13:08> Subjective - Date & Time of Evaluation Date of Evaluation: 02/21/18 Time of Evaluation: 08:02 - Subjective Subjective: Internal Medicine Progress Note: Patient seen and examined at bedside. Nurse reports patient was awake all night and that her cardene drip was discontinued secondary to controlled/low-normal blood pressure. Patient exhibited word-finding difficulty when speaking today. She reports her headache has decreased in intensity. Otherwise, no events adverse events retrieved from nursing staff or chart review. Objective - Vital Signs/Intake and Output Vital Signs (last 24 hours): Temp Pulse Resp BP Pulse Ox 98.5 F 71 28 H 111/50 L 95 02/21/18 04:00 02/21/18 07:01 02/21/18 07:01 02/21/18 07:01 02/21/18 07:01 Intake and Output: 02/21/18 02/21/18 06:59 18:59 Intake Total 2300 100 Output Total 300 Balance 2000 100 - Medications Medications: Current Medications Acetaminophen (Tylenol 650 Mg Supp) 650 mg RC Q6H PRN PRN Reason: Fever >100.4 F Acetaminophen (Tylenol 325mg Tab) 650 mg PO Q4 PRN PRN Reason: Fever >100.4 F Last Admin: 02/21/18 00:54 Dose: 650 mg Amlodipine Besylate (Norvasc) 5 mg PO DAILY [facility] Last Admin: 02/20/18 15:43 Dose: 5 mg Nicardipine HCl (Cardene Iv Premix) 20 mg in 200 mls @ 50 mls/hr IV .Q4H PRN; Protocol; 5 MG/HR PRN Reason: TITRATE PER MD ORDER Last Titration: 02/21/18 07:21 Dose: 2.5 mg/hr, 25 mls/hr Ondansetron HCl (Zofran Inj) 4 mg IVP Q6H PRN PRN Reason: Nausea/Vomiting Last Admin: 02/21/18 02:50 Dose: 4 mg Pantoprazole Sodium (Protonix Inj) 40 mg IVP DAILY [facility] Last Admin: 02/20/18 11:05 Dose: 40 mg Polyethylene Glycol (Miralax) 17 gm PO DAILY [facility] Last Admin: 02/20/18 15:55 Dose: Not Given - Labs Labs: 02/21/18 05:25 02/21/18 05:25 PT 12.7 SECONDS (9.4-12.5) H 02/19/18 13:05 INR 1.11 (0.93-1.08) H 02/19/18 13:05 APTT 33.7 Seconds (25.1-36.5) 02/19/18 13:05 - Constitutional Appears: Non-toxic, No Acute Distress - Head Exam Head Exam: ATRAUMATIC, NORMOCEPHALIC - Eye Exam Additional comments: superior gaze palsy, with left eye patch on - ENT Exam ENT Exam: Mucous Membranes Moist - Neck Exam Neck Exam: Normal Inspection - Respiratory Exam Respiratory Exam: Clear to Ausculation Bilateral, NORMAL BREATHING PATTERN. absent: Accessory Muscle Use - Cardiovascular Exam Cardiovascular Exam: RRR, +S1, +S2 - GI/Abdominal Exam GI & Abdominal Exam: Soft, Normal Bowel Sounds - Extremities Exam Extremities Exam: Normal Inspection. absent: Calf Tenderness - Neurological Exam Neurological Exam: Awake - Skin Skin Exam: Dry, Intact, Normal Color, Warm Assessment and Plan - Assessment and Plan (Free Text) Assessment: 52 year old female with a past medical history significant for hypertension who presented with hypertensive emergency and was found to have an acute intraparenchymal hemmorhage in the left thalamic region with deficits in extraocular movement and sensation. Patient is being closely monitored in the ICU with neurology and neurosurgery consulted. Plan: 1) Intraparenchymal hemmorhage: - Non-contrast CT head on 02/21: Re- demonstrated is a left thalamic hematoma which measures approximately 19.2 x 19.0 mm in greatest dimension. The hematoma compresses the posterior margin of the 3rd ventricle with mild dilatation proximal aspect of the 3rd ventricle as well as the lateral ventricles Moderate chronic white matter ischemic changes ; note that a component of transependymal edema not excluded. Few scattered chronic bilateral basal nuclei lacunar type infarcts. Re- demonstrated are postoperative changes of the nasal cavity and paranasal sinuses mentioned above. - HOB 30 degrees - left eye patch - Speech therapy - Cardene drip to be titrated and managed by ICU team - HHD diet - aspiration, seizure, and fall precautions - PT ordered, unclear if they can help patient at this time - Maintain euthermia, euglycemia, normotension - Echocardiogram shows that the LV cavity is normal sized, there is mild to moderate concentric LVH, normal LVEF. - Zofran 4 mg PRN for nausea - Appreciate neurology and neurosurgery recommendations 2) Hypertension - Amlodipine 5 mg 3) GI/DVT prophylaxis - Protonix 40 and SCD Case reviewed and discussed with Dr. Escalona <Brendan Escalona B - Last Filed: 02/23/18 14:05> Objective - Vital Signs/Intake and Output Vital Signs (last 24 hours): Temp Pulse Resp BP Pulse Ox 98.6 F 70 18 156/90 H 98 02/23/18 08:36 02/23/18 11:57 02/23/18 08:36 02/23/18 11:57 02/23/18 08:36 Intake and Output: 02/23/18 02/23/18 06:59 18:59 Intake Total 120 Output Total 300 Balance -180 - Medications Medications: Current Medications Acetaminophen (Tylenol 325mg Tab) 650 mg PO Q4 PRN PRN Reason: Fever >100.4 F Last Admin: 02/22/18 21:56 Dose: 650 mg Amantadine HCl (Amantadine 100 Mg Cap) 100 mg PO DAILY [facility] Last Admin: 02/23/18 10:35 Dose: 100 mg Amlodipine Besylate (Norvasc) 10 mg PO DAILY [facility] Last Admin: 02/23/18 09:59 Dose: 10 mg Hydralazine HCl (Apresoline) 10 mg IVP Q6H PRN PRN Reason: SBP greater than 140 Metoprolol Tartrate (Lopressor) 12.5 mg PO BID [facility] Last Admin: 02/23/18 10:52 Dose: 12.5 mg Ondansetron HCl (Zofran Inj) 4 mg IVP Q6H PRN PRN Reason: Nausea/Vomiting Last Admin: 02/21/18 02:50 Dose: 4 mg Pantoprazole Sodium (Protonix Ec Tab) 40 mg PO ACB [facility] Last Admin: 02/23/18 09:59 Dose: 40 mg Polyethylene Glycol (Miralax) 17 gm PO DAILY [facility] Last Admin: 02/23/18 09:58 Dose: 17 gm Valproate Sodium (Depakene Cap) 500 mg PO DAILY [facility] - Labs Labs: 02/23/18 06:00 02/23/18 06:30 PT 12.7 SECONDS (9.4-12.5) H 02/19/18 13:05 INR 1.11 (0.93-1.08) H 02/19/18 13:05 APTT 33.7 Seconds (25.1-36.5) 02/19/18 13:05 Attending/Attestation - Attestation I have personally seen and examined this patient.: Yes I have fully participated in the care of the patient.: Yes I have reviewed all pertinent clinical information, including history, physical exam and plan: Yes Notes (Text): I have seen and examined patient with the resident. Agree with the note dictated above with the following additions/exceptions: Briefly this is 52 year old female with history of tobacco use, morbid obesity (BMI 43), s/p gastric by pass surgery who was admitted for evaluation of dizziness, headache and found to have left thalamic intra cranial hemorrhage. Her BP has improved. She is off of cardene drip and was restarted on norvasc. 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 Neurologist and neurosurgeon on board. Maintain normothermia , normoglycemia and aggressive BP control. Swallow eval appreciated. Keep HOB elevated at 30 degrees. Echo revealed mild to moderate concentric LVH. PT eval pending. Tobacco cessation counselling provided. Upon discharge patient will follow up with Dr Gaitan.
--- NOTE | 2018-02-21 09:23 | CARD ---
APPROVED REPORT EXAM: Two-dimensional and M-mode echocardiogram with Doppler and color Doppler. Other Information Quality : AverageRhythm : INDICATION CODE STROKE 2D DIMENSIONS Left Atrium (2D)4.2 (1.6-4.0cm)IVSd1.3 (0.7-1.1cm) LVDd3.6 (3.9-5.9cm)PWd1.3 (0.7-1.1cm) LVDs2.3 (2.5-4.0cm)FS (%) 37.1 % LVEF (%)68.0 (>50%) M-Mode DIMENSIONS Aortic Root3.40 (2.2-3.7cm)Aortic Cusp Exc.2.00 (1.5-2.0cm) Aortic Valve AoV Peak Vgsblckg496.0cm/sAoV VTI39.1cmLVOT Peak Qkwndzgm080.0cm/s LVOT VTI27.40cm Mitral Valve MV E Ydgqsyuf08.3cm/sMV A Eytwharr59.2cm/sE/A ratio0.9 TDI Lateral E' Peak V6.82cm/sMedial E' Peak V6.34cm/sE/Lateral E'10.5 E/Medial E'11.2 Pulmonary Valve PV Peak Ioguztfi467.0cm/sPV Peak Grad.5mmHg Tricuspid Valve TR Peak Gsxswjsn353ve/sRAP [id number] Peak Gr.24mmHg [id number] LEFT VENTRICLE The left ventricle is normal size. There is mild to moderate concentric left ventricular hypertrophy. The left ventricular function is normal. The left ventricular ejection fraction is within the normal range. There is normal LV segmental wall motion. RIGHT VENTRICLE The right ventricle is normal size. ATRIA The left atrium is mildly dilated. The right atrium size is normal. The interatrial septum is intact with no evidence for an atrial septal defect. AORTIC VALVE The aortic valve is normal in structure. MITRAL VALVE The mitral valve is normal in structure. Mitral regurgitation is trace. TRICUSPID VALVE The tricuspid valve is normal in structure. There is tracetrace tricuspid regurgitation. PULMONIC VALVE The pulmonic valve is not well visualized. There is trace pulmonic valvular regurgitation. GREAT VESSELS The aortic root is normal in size. PERICARDIAL EFFUSION There is no pericardial effusion. <Conclusion> The left ventricle is normal size. There is mild to moderate concentric left ventricular hypertrophy. The left ventricular function is normal.
[2018-02-21] MEDS: POLYETHYLENE GLYCOL 3350 17 GM/Dose PACKET PO SCH (09:42)
--- NOTE | 2018-02-21 09:59 | CT ---
PROCEDURE: CT HEAD WITHOUT CONTRAST. HISTORY: Monitor intraparenchymal hemorrhage. COMPARISON: Comparison made with CT scan brain 02/20/2018 TECHNIQUE: Axial computed tomography images were obtained through the head/brain without intravenous contrast. Radiation dose: Total exam DLP = 865.61 mGy-cm. This CT exam was performed using one or more of the following dose reduction techniques: Automated exposure control, adjustment of the mA and/or kV according to patient size, and/or use of iterative reconstruction technique. FINDINGS: HEMORRHAGE: Re- demonstrated is a left thalamic hematoma which measures approximately 19.2 x 19.0 mm in greatest dimension. The hematoma compresses the posterior margin of the 3rd ventricle with mild dilatation proximal aspect of the 3rd ventricle as well as the lateral ventricles BRAIN: . Moderate diffuse/confluent chronic white matter ischemic changes seen extending peripherally into the deep and to a lesser degree subcortical white matter both cerebral hemispheres. Note that an element of mild transependymal edema cannot be excluded. There are also a few scattered chronic bilateral basal nuclei lacunar type infarcts. Again noted are postoperative changes Slightly enlarged on fluid filled sella turcica ; findings could be secondary to partially empty sella however the possibility of a small arachnoid cyst not excluded. VENTRICLES: Mild dilatation proximal 3rd and lateral ventricles due to compression of the posterior 3rd ventricle by aforementioned left basal ganglia hemorrhage as mentioned above. CALVARIUM: Calvarium intact. PARANASAL SINUSES: Again noted are postoperative changes of the nasal cavities with partial left ethmoidectomy and medial wall antrostomy defects MASTOID AIR CELLS: Unremarkable as visualized. No inflammatory changes. OTHER FINDINGS: None. IMPRESSION: Re- demonstrated is a left thalamic hematoma which measures approximately 19.2 x 19.0 mm in greatest dimension. The hematoma compresses the posterior margin of the 3rd ventricle with mild dilatation proximal aspect of the 3rd ventricle as well as the lateral ventricles Moderate chronic white matter ischemic changes ; note that a component of transependymal edema not excluded. . Few scattered chronic bilateral basal nuclei lacunar type infarcts. Re- demonstrated are postoperative changes of the nasal cavity and paranasal sinuses mentioned above.
--- NOTE | 2018-02-21 10:34 | PN ---
DATE: 02/21/2018 SUBJECTIVE: The patient is seen and examined at bedside. She is comfortable. She is not in respiratory or otherwise distress. She is alert, awake and oriented in place; however, confused about time. PHYSICAL EXAMINATION: VITAL SIGNS: Blood pressure 120/60, heart rate 71, respiratory rate 20, oxygen saturation 95% on room air. ENT: Head and neck atraumatic. LUNGS: Clear to auscultation bilaterally. HEART: Regular rate and rhythm. S1 and S2 normal. ABDOMEN: Soft, nontender and nondistended, obese. MUSCULOSKELETAL: No C/C/E. NEURO: The patient moves all extremities spontaneously. SKIN: Moist. PSYCH: The patient is alert, awake and oriented x1. LABORATORY DATA: WBC 11.9, hemoglobin 12.9, platelet count 417. Sodium 141, potassium 3.7, chloride 104, carbon dioxide 25, BUN 16, creatinine 1, glucose 111, AST 37, ALT 23, bilirubin 0.6. MEDICATIONS: Tylenol p.r.n., Norvasc, Cardene drip, Zofran p.r.n., Protonix. ASSESSMENT AND PLAN: A 52-year-old lady with thalamic bleed, who, however, protecting her airways, very comfortable and aware about her environment as well as her location and oriented in person. She is on Cardene drip for blood pressure control as a part of acute stroke management. At present time, we will try to wean it off while continuing Norvasc daily. The patient tolerated the oral diet and passed swallow evaluation before. We will continue target euvolemia, euglycemia, normothermia and oxygen saturation more than 90%. If able to wean off Cardene drip, the patient will be considered for transfer to Med-Surg or stroke floor. We will continue with deep venous thrombosis/gastrointestinal prophylaxis. Aspiration precaution. Head of bed elevated at >35 degrees. ccm time 40 min Ramon Keys MD MTDD
--- NOTE | 2018-02-21 12:10 | RAD ---
HISTORY: r/o pna, COMPARISON: 02/19/2018 FINDINGS: LUNGS: No active pulmonary disease. PLEURA: No significant pleural effusion identified, no pneumothorax apparent. CARDIOVASCULAR: Normal. OSSEOUS STRUCTURES: No significant abnormalities. VISUALIZED UPPER ABDOMEN: Normal. OTHER FINDINGS: None. IMPRESSION: No active disease.
[2018-02-21 12:36] LABS: PH,URINE 5.5 (4.7-8.0); URINE BILIRUBIN NEGATIVE (NEGATIVE); URINE BLOOD NEGATIVE (NEGATIVE); URINE GLUCOSE (UA) NEGATIVE (NEGATIVE); URINE LEUKOCYTE ESTERASE NEGATIVE Leu/uL (NEGATIVE); URINE PROTEIN NEGATIVE mg/dL (<30 mg/dL); URINE UROBILINOGEN 0.2 E.U./dL (<1 E.U./dL)
[2018-02-21 12:37] LABS: URINE APPEARANCE CLEAR (CLEAR); URINE COLOR YELLOW (YELLOW)
--- NOTE | 2018-02-21 13:05 | DS ---
HISTORY OF PRESENT ILLNESS: This is a rather unfortunate 52-year-old lady with history of hypertension. On day of admission, noted rapid onset of unusual feeling followed by visual disturbance including diplopia. She was brought urgently to the [place] ER where she was found to have a hypertensive intracerebral hemorrhage. She was then admitted to the ICU. On arrival, she was markedly hypertensive and required IV . On speaking with her today, she actually is in far better neurological shape than one with from her CT scan. She complains predominantly visual symptoms, difficulty maintaining focus with some diplopia. This was her main complaint. PAST MEDICAL HISTORY: More significant for hypertension. Remainder of her medical history, medications, allergies, social history, medications reviewed in the EMR. PHYSICAL EXAMINATION: GENERAL: She is , awake and alert. She came to hospital little confused about the date, oriented to the president, does follow all commands briskly. HEENT: Her pupils are equal and reactive. Interestingly, she just had good lateral gaze bilaterally. I did not detect much in the way of nystagmus. She has classic Parinaud's syndrome with upgaze paralysis. NEUROLOGIC: Cranial nerves V through VII do seem to be functional. She has 5/5 strength in the 4 extremities. She has excellent proprioception bilaterally. CT of the brain done on admission and in the middle of the night because of some confusion, basically unchanged. Does have left thalamic hemorrhage which ruptured inferiorly into the upper mid brain. There was no hydrocephalus seen including the second study. IMPRESSION AND PLAN: From my standpoint, I would recommend continued aggressive blood pressure control. It would not be a bad idea to get rehab services involved early. From the Neurosurgical standpoint, the only concern is a delayed hydrocephalus and therefore, I recommended another followup scan tomorrow morning. Joe Castañeda MD
--- NOTE | 2018-02-21 13:49 | CP.CCUPN ---
<Roddy Carcamo - Last Filed: 02/21/18 13:46> CCU Subjective - Physician Review Subjective (Free Text): ICU Progress Note Pt seen and examined at bedside. No acute overnight events. Patient mentation improved today is oriented to person and place. Patient states that headache is improved with left eye patch. Pt denied CP, SOB, n/v/d, abdominal pain, fever, chills, or dizziness. CCU Objective - Vital Signs / Intake & Output Intake and Output (Last 8hrs): Intake & Output 02/20/18 02/21/18 02/21/18 22:59 06:59 14:59 Intake Total 2100 1900 100 Output Total 800 300 Balance 1300 1600 100 Intake: IV 2100 1700 100 Right Antecubital 1500 1100 Oral 200 Output: Urine 800 300 Urine, Voided 800 300 - Physical Exam Head: Positive for: Atraumatic Pupils: Positive for: PERRL Extroacular Muscles: Positive for: Gaze Palsy Conjunctiva: Positive for: Normal. Negative for: Injected Ears: Positive for: Normal. Negative for: Erythema Mouth: Positive for: Moist Mucous Membranes Pharnyx: Negative for: ERYTHEMA Nose (Internal): Positive for: Normal Inspection Neck: Positive for: Normal Range of Motion. Negative for: Meningeal Signs Respiratory/Chest: Positive for: Clear to Auscultation. Negative for: Respiratory Distress, Wheezes, Retracting, Rhonchi Cardiovascular: Positive for: Regular Rate and Rhythm. Negative for: Murmurs, Rub, Gallop Abdomen: Positive for: Normal Bowel Sounds. Negative for: Tenderness, Distention Back: Negative for: CVA Tenderness Upper Extremity: Positive for: Normal Inspection, Capillary Refill < 2s. Negative for: Cyanosis, Swelling, Erythema Lower Extremity: Positive for: Normal Inspection, Capillary Refill < 2 s. Negative for: Edema, Tenderness, Swelling, Erythema Neurological: Positive for: Speech Normal, Other (AAOx4, SCOTT, 5/5 strength throughout, downgoing [place]is, no clonus, follows simple and complex ). Negative for: CN II-XII Intact Skin: Positive for: Warm, Dry Psychiatric: Positive for: Alert, Oriented x 3, Normal Concentration - Medications Active Medications: Active Medications Generic Name Dose Route Start Last Admin Trade Name Freq PRN Reason Stop Dose Admin Acetaminophen 650 mg 02/21/18 00:44 02/21/18 00:54 Tylenol 325mg Tab PO 650 mg Q4 PRN Administration Fever >100.4 F Amlodipine Besylate 5 mg 02/20/18 12:45 02/21/18 09:42 Norvasc PO 5 mg DAILY NAEEM Administration Ondansetron HCl 4 mg 02/19/18 20:29 02/21/18 02:50 Zofran Inj IVP 4 mg Q6H PRN Administration Nausea/Vomiting Pantoprazole Sodium 40 mg 02/22/18 07:30 Protonix Ec Tab PO ACB NAEEM Polyethylene Glycol 17 gm 02/20/18 10:00 02/21/18 09:42 Miralax PO 17 gm DAILY NAEEM Administration - Patient Studies Lab Studies: Microbiology Studies 02/19/18 19:36 MRSA Culture (Admit) - Final Naris MRSA NOT DETECTED Lab Studies 02/21/18 02/21/18 02/21/18 Range/Units 12:28 11:49 07:58 WBC (4.5-11.0) 10^3/ul RBC (3.5-6.1) 10^6/uL Hgb (12.0-16.0) g/dL Hct (36.0-48.0) % MCV (80.0-105.0) fl MCH (25.0-35.0) pg MCHC (31.0-37.0) g/dl RDW (11.5-14.5) % Plt Count (120.0-450.0) 10^3/uL MPV (7.0-11.0) fl Gran % (50.0-68.0) % Lymph % (Auto) (22.0-35.0) % [place] % (Auto) (1.0-6.0) % Eos % (Auto) (1.5-5.0) % Baso % (Auto) (0.0-3.0) % Gran # (1.4-6.5) Lymph # (Auto) (1.2-3.4) [place] # (Auto) (0.1-0.6) Eos # (Auto) (0.0-0.7) Baso # (Auto) (0.0-2.0) K/mm3 Sodium (132-148) mmol/L Potassium (3.6-5.0) mmol/L Chloride (98-107) mmol/L Carbon Dioxide (21-33) mmol/L Anion Gap (10-20) BUN (7-21) mg/dL Creatinine (0.7-1.2) mg/dl Est GFR ( Amer) Est GFR (Non-Af Amer) POC Glucose (mg/dL) 136 H 111 H (65-110) mg/dL Random Glucose (70-110) mg/dL Calcium (8.4-10.5) mg/dL Phosphorus (2.5-4.5) mg/dL Magnesium (1.7-2.2) mg/dL Total Bilirubin (0.2-1.3) mg/dL AST (14-36) U/L ALT (7-56) U/L Alkaline Phosphatase (38-126) U/L Total Protein (5.8-8.3) g/dL Albumin (3.0-4.8) g/dL Globulin gm/dL Albumin/Globulin Ratio (1.1-1.8) Urine Color Yellow (YELLOW) Urine Appearance Clear (CLEAR) Urine pH 5.5 (4.7-8.0) Ur Specific [place] <= 1.005 (1.005-1.035) Urine Protein Negative (<30 mg/dL) mg/dL Urine Glucose (UA) Negative (NEGATIVE) mg/dL Urine Ketones Negative (NEGATIVE) mg/dL Urine Blood Negative (NEGATIVE) Urine Nitrate Negative (NEGATIVE) Urine Bilirubin Negative (NEGATIVE) Urine Urobilinogen 0.2 (<1 E.U./dL) E.U./dL Ur Leukocyte Esterase Negative (NEGATIVE) Bonnie/uL 02/21/18 02/21/18 02/20/18 Range/Units 05:25 05:25 21:45 WBC 11.9 H (4.5-11.0) 10^3/ul RBC 5.03 (3.5-6.1) 10^6/uL Hgb 12.9 (12.0-16.0) g/dL Hct 39.3 (36.0-48.0) % MCV 78.1 L (80.0-105.0) fl MCH 25.6 (25.0-35.0) pg MCHC 32.8 (31.0-37.0) g/dl RDW 14.9 H (11.5-14.5) % Plt Count 470 H (120.0-450.0) 10^3/uL MPV 8.7 (7.0-11.0) fl Gran % 79.0 H (50.0-68.0) % Lymph % (Auto) 14.3 L (22.0-35.0) % [place] % (Auto) 5.7 (1.0-6.0) % Eos % (Auto) 0.7 L (1.5-5.0) % Baso % (Auto) 0.3 (0.0-3.0) % Gran # 9.39 H (1.4-6.5) Lymph # (Auto) 1.7 (1.2-3.4) [place] # (Auto) 0.7 H (0.1-0.6) Eos # (Auto) 0.1 (0.0-0.7) Baso # (Auto) 0.03 (0.0-2.0) K/mm3 Sodium 141 (132-148) mmol/L Potassium 3.7 (3.6-5.0) mmol/L Chloride 104 (98-107) mmol/L Carbon Dioxide 25 (21-33) mmol/L Anion Gap 17 (10-20) BUN 16 (7-21) mg/dL Creatinine 1.0 (0.7-1.2) mg/dl Est GFR ( Amer) > 60 Est GFR (Non-Af Amer) 58 POC Glucose (mg/dL) 132 H (65-110) mg/dL Random Glucose 136 H (70-110) mg/dL Calcium 9.4 (8.4-10.5) mg/dL Phosphorus 3.9 (2.5-4.5) mg/dL Magnesium 2.1 (1.7-2.2) mg/dL Total Bilirubin 0.6 (0.2-1.3) mg/dL AST 37 H (14-36) U/L ALT 23 (7-56) U/L Alkaline Phosphatase 94 (38-126) U/L Total Protein 8.5 H (5.8-8.3) g/dL Albumin 4.3 (3.0-4.8) g/dL Globulin 4.2 gm/dL Albumin/Globulin Ratio 1.0 L (1.1-1.8) Urine Color (YELLOW) Urine Appearance (CLEAR) Urine pH (4.7-8.0) Ur Specific [place] (1.005-1.035) Urine Protein (<30 mg/dL) mg/dL Urine Glucose (UA) (NEGATIVE) mg/dL Urine Ketones (NEGATIVE) mg/dL Urine Blood (NEGATIVE) Urine Nitrate (NEGATIVE) Urine Bilirubin (NEGATIVE) Urine Urobilinogen (<1 E.U./dL) E.U./dL Ur Leukocyte Esterase (NEGATIVE) Bonnie/uL 02/20/18 Range/Units 16:27 WBC (4.5-11.0) 10^3/ul RBC (3.5-6.1) 10^6/uL Hgb (12.0-16.0) g/dL Hct (36.0-48.0) % MCV (80.0-105.0) fl MCH (25.0-35.0) pg MCHC (31.0-37.0) g/dl RDW (11.5-14.5) % Plt Count (120.0-450.0) 10^3/uL MPV (7.0-11.0) fl Gran % (50.0-68.0) % Lymph % (Auto) (22.0-35.0) % [place] % (Auto) (1.0-6.0) % Eos % (Auto) (1.5-5.0) % Baso % (Auto) (0.0-3.0) % Gran # (1.4-6.5) Lymph # (Auto) (1.2-3.4) [place] # (Auto) (0.1-0.6) Eos # (Auto) (0.0-0.7) Baso # (Auto) (0.0-2.0) K/mm3 Sodium (132-148) mmol/L Potassium (3.6-5.0) mmol/L Chloride (98-107) mmol/L Carbon Dioxide (21-33) mmol/L Anion Gap (10-20) BUN (7-21) mg/dL Creatinine (0.7-1.2) mg/dl Est GFR ( Amer) Est GFR (Non-Af Amer) POC Glucose (mg/dL) 124 H (65-110) mg/dL Random Glucose (70-110) mg/dL Calcium (8.4-10.5) mg/dL Phosphorus (2.5-4.5) mg/dL Magnesium (1.7-2.2) mg/dL Total Bilirubin (0.2-1.3) mg/dL AST (14-36) U/L ALT (7-56) U/L Alkaline Phosphatase (38-126) U/L Total Protein (5.8-8.3) g/dL Albumin (3.0-4.8) g/dL Globulin gm/dL Albumin/Globulin Ratio (1.1-1.8) Urine Color (YELLOW) Urine Appearance (CLEAR) Urine pH (4.7-8.0) Ur Specific [place] (1.005-1.035) Urine Protein (<30 mg/dL) mg/dL Urine Glucose (UA) (NEGATIVE) mg/dL Urine Ketones (NEGATIVE) mg/dL Urine Blood (NEGATIVE) Urine Nitrate (NEGATIVE) Urine Bilirubin (NEGATIVE) Urine Urobilinogen (<1 E.U./dL) E.U./dL Ur Leukocyte Esterase (NEGATIVE) Bonnie/uL Laboratory Results - last 24 hr 02/20/18 02/20/18 02/21/18 16:27 21:45 05:25 WBC 11.9 H RBC 5.03 Hgb 12.9 Hct 39.3 MCV 78.1 L MCH 25.6 MCHC 32.8 RDW 14.9 H Plt Count 470 H MPV 8.7 Gran % 79.0 H Lymph % (Auto) 14.3 L [place] % (Auto) 5.7 Eos % (Auto) 0.7 L Baso % (Auto) 0.3 Gran # 9.39 H Lymph # (Auto) 1.7 [place] # (Auto) 0.7 H Eos # (Auto) 0.1 Baso # (Auto) 0.03 Sodium Potassium Chloride Carbon Dioxide Anion Gap BUN Creatinine Est GFR ( Amer) Est GFR (Non-Af Amer) POC Glucose (mg/dL) 124 H 132 H Random Glucose Calcium Phosphorus Magnesium Total Bilirubin AST ALT Alkaline Phosphatase Total Protein Albumin Globulin Albumin/Globulin Ratio Urine Color Urine Appearance Urine pH Ur Specific [place] Urine Protein Urine Glucose (UA) Urine Ketones Urine Blood Urine Nitrate Urine Bilirubin Urine Urobilinogen Ur Leukocyte Esterase 05/06/0302/21/18 02/21/18 05:25 07:58 11:49 WBC RBC Hgb Hct MCV MCH MCHC RDW Plt Count MPV Gran % Lymph % (Auto) [place] % (Auto) Eos % (Auto) Baso % (Auto) Gran # Lymph # (Auto) [place] # (Auto) Eos # (Auto) Baso # (Auto) Sodium 141 Potassium 3.7 Chloride 104 Carbon Dioxide 25 Anion Gap 17 BUN 16 Creatinine 1.0 Est GFR ( Amer) > 60 Est GFR (Non-Af Amer) 58 POC Glucose (mg/dL) 111 H 136 H Random Glucose 136 H Calcium 9.4 Phosphorus 3.9 Magnesium 2.1 Total Bilirubin 0.6 AST 37 H ALT 23 Alkaline Phosphatase 94 Total Protein 8.5 H Albumin 4.3 Globulin 4.2 Albumin/Globulin Ratio 1.0 L Urine Color Urine Appearance Urine pH Ur Specific [place] Urine Protein Urine Glucose (UA) Urine Ketones Urine Blood Urine Nitrate Urine Bilirubin Urine Urobilinogen Ur Leukocyte Esterase 02/21/18 12:28 WBC RBC Hgb Hct MCV MCH MCHC RDW Plt Count MPV Gran % Lymph % (Auto) [place] % (Auto) Eos % (Auto) Baso % (Auto) Gran # Lymph # (Auto) [place] # (Auto) Eos # (Auto) Baso # (Auto) Sodium Potassium Chloride Carbon Dioxide Anion Gap BUN Creatinine Est GFR ( Amer) Est GFR (Non-Af Amer) POC Glucose (mg/dL) Random Glucose Calcium Phosphorus Magnesium Total Bilirubin AST ALT Alkaline Phosphatase Total Protein Albumin Globulin Albumin/Globulin Ratio Urine Color Yellow Urine Appearance Clear Urine pH 5.5 Ur Specific [place] <= 1.005 Urine Protein Negative Urine Glucose (UA) Negative Urine Ketones Negative Urine Blood Negative Urine Nitrate Negative Urine Bilirubin Negative Urine Urobilinogen 0.2 Ur Leukocyte Esterase Negative Fingerstick Blood Sugar Results: 111 Critical Care Progress Note - Nutrition Nutrition: Nutrition Category Date Time Status Heart Healthy Diet [DIET] Diets 02/20/18 Breakfast Ordered Assessment/Plan - Assessment and Plan (Free Text) Assessment: 52 year old female with a PMH of HTN, current smoker, and gastric bypass who presented to the ER with headache and dizziness and was found to have a left thalamic intracerebral hemorrhage. Plan: Neurological CT head (02/19) reviewed - acute hemorrhage in the left thalamus 1.8x 1.5x 1.3 CT head (02/20) showed no major difference CT head (02/21) redemonstrated left thalamic hematoma 19.2x19mm with compression of the posterior margin of the 3rd ventricle. Dilated 3rd and lateral ventricle. MRA unremarkable Neurosurgery consulted, no surgical intervention Neuro following, recs appreciated, discussed with resident Cardene drip stopped, Norvasc PO started Pending repeat swallow eval Maintain HOB elevation 35' Cont Neuro checks Cont Aspiration precautions Maintain normothermia Pulmonologic Maintain SPO2 > 90 % CXR reviewed and showed no active disease 2L NC PRN Cardiovascular HD stable Maintain MAP > 65 Cardene drip stopped, Norvasc PO started Echo showed LVEF 68%, mild to moderate LVH Gastrointestinal Speech/Swallow eval recommended regular/soft w thin liquids Heart healthy diet Miralax Renal Potassium WNL Continue to monitor electrolytes and replete as needed Maintain euvolemia Making urine appropriately Infectious disease Afebrile No leukocytosis Endocronologic Maintain euglycemic Cont fingersticks Hematologic No active bleeding HD stable Following GI/DVT ppx: protonix/SCDs Patient was seen and examined and case was discussed at length with attending physician. Dnon Carcamo, PGY1 <Ramon Keys - Last Filed: 02/21/18 15:41> CCU Objective - Vital Signs / Intake & Output Intake and Output (Last 8hrs): Intake & Output 02/21/18 02/21/18 02/21/18 06:59 14:59 22:59 Intake Total 1900 100 Output Total 300 Balance 1600 100 Intake: IV 1700 100 Right Antecubital 1100 Oral 200 Output: Urine 300 Urine, Voided 300 - Medications Active Medications: Active Medications Generic Name Dose Route Start Last Admin Trade Name Freq PRN Reason Stop Dose Admin Acetaminophen 650 mg 02/21/18 00:44 02/21/18 00:54 Tylenol 325mg Tab PO 650 mg Q4 PRN Administration Fever >100.4 F Amlodipine Besylate 5 mg 02/20/18 12:45 02/21/18 09:42 Norvasc PO 5 mg DAILY NAEEM Administration Ondansetron HCl 4 mg 02/19/18 20:29 02/21/18 02:50 Zofran Inj IVP 4 mg Q6H PRN Administration Nausea/Vomiting Pantoprazole Sodium 40 mg 02/22/18 07:30 Protonix Ec Tab PO ACB NAEEM Polyethylene Glycol 17 gm 02/20/18 10:00 02/21/18 09:42 Miralax PO 17 gm DAILY NAEEM Administration - Patient Studies Lab Studies: Microbiology Studies 02/19/18 19:36 MRSA Culture (Admit) - Final Naris MRSA NOT DETECTED Lab Studies 02/21/18 02/21/18 02/21/18 Range/Units 12:28 11:49 07:58 WBC (4.5-11.0) 10^3/ul RBC (3.5-6.1) 10^6/uL Hgb (12.0-16.0) g/dL Hct (36.0-48.0) % MCV (80.0-105.0) fl MCH (25.0-35.0) pg MCHC (31.0-37.0) g/dl RDW (11.5-14.5) % Plt Count (120.0-450.0) 10^3/uL MPV (7.0-11.0) fl Gran % (50.0-68.0) % Lymph % (Auto) (22.0-35.0) % [place] % (Auto) (1.0-6.0) % Eos % (Auto) (1.5-5.0) % Baso % (Auto) (0.0-3.0) % Gran # (1.4-6.5) Lymph # (Auto) (1.2-3.4) [place] # (Auto) (0.1-0.6) Eos # (Auto) (0.0-0.7) Baso # (Auto) (0.0-2.0) K/mm3 Sodium (132-148) mmol/L Potassium (3.6-5.0) mmol/L Chloride (98-107) mmol/L Carbon Dioxide (21-33) mmol/L Anion Gap (10-20) BUN (7-21) mg/dL Creatinine (0.7-1.2) mg/dl Est GFR ( Amer) Est GFR (Non-Af Amer) POC Glucose (mg/dL) 136 H 111 H (65-110) mg/dL Random Glucose (70-110) mg/dL Calcium (8.4-10.5) mg/dL Phosphorus (2.5-4.5) mg/dL Magnesium (1.7-2.2) mg/dL Total Bilirubin (0.2-1.3) mg/dL AST (14-36) U/L ALT (7-56) U/L Alkaline Phosphatase (38-126) U/L Total Protein (5.8-8.3) g/dL Albumin (3.0-4.8) g/dL Globulin gm/dL Albumin/Globulin Ratio (1.1-1.8) Urine Color Yellow (YELLOW) Urine Appearance Clear (CLEAR) Urine pH 5.5 (4.7-8.0) Ur Specific [place] <= 1.005 (1.005-1.035) Urine Protein Negative (<30 mg/dL) mg/dL Urine Glucose (UA) Negative (NEGATIVE) mg/dL Urine Ketones Negative (NEGATIVE) mg/dL Urine Blood Negative (NEGATIVE) Urine Nitrate Negative (NEGATIVE) Urine Bilirubin Negative (NEGATIVE) Urine Urobilinogen 0.2 (<1 E.U./dL) E.U./dL Ur Leukocyte Esterase Negative (NEGATIVE) Bonnie/uL 02/21/18 02/21/18 02/20/18 Range/Units 05:25 05:25 21:45 WBC 11.9 H (4.5-11.0) 10^3/ul RBC 5.03 (3.5-6.1) 10^6/uL Hgb 12.9 (12.0-16.0) g/dL Hct 39.3 (36.0-48.0) % MCV 78.1 L (80.0-105.0) fl MCH 25.6 (25.0-35.0) pg MCHC 32.8 (31.0-37.0) g/dl RDW 14.9 H (11.5-14.5) % Plt Count 470 H (120.0-450.0) 10^3/uL MPV 8.7 (7.0-11.0) fl Gran % 79.0 H (50.0-68.0) % Lymph % (Auto) 14.3 L (22.0-35.0) % [place] % (Auto) 5.7 (1.0-6.0) % Eos % (Auto) 0.7 L (1.5-5.0) % Baso % (Auto) 0.3 (0.0-3.0) % Gran # 9.39 H (1.4-6.5) Lymph # (Auto) 1.7 (1.2-3.4) [place] # (Auto) 0.7 H (0.1-0.6) Eos # (Auto) 0.1 (0.0-0.7) Baso # (Auto) 0.03 (0.0-2.0) K/mm3 Sodium 141 (132-148) mmol/L Potassium 3.7 (3.6-5.0) mmol/L Chloride 104 (98-107) mmol/L Carbon Dioxide 25 (21-33) mmol/L Anion Gap 17 (10-20) BUN 16 (7-21) mg/dL Creatinine 1.0 (0.7-1.2) mg/dl Est GFR ( Amer) > 60 Est GFR (Non-Af Amer) 58 POC Glucose (mg/dL) 132 H (65-110) mg/dL Random Glucose 136 H (70-110) mg/dL Calcium 9.4 (8.4-10.5) mg/dL Phosphorus 3.9 (2.5-4.5) mg/dL Magnesium 2.1 (1.7-2.2) mg/dL Total Bilirubin 0.6 (0.2-1.3) mg/dL AST 37 H (14-36) U/L ALT 23 (7-56) U/L Alkaline Phosphatase 94 (38-126) U/L Total Protein 8.5 H (5.8-8.3) g/dL Albumin 4.3 (3.0-4.8) g/dL Globulin 4.2 gm/dL Albumin/Globulin Ratio 1.0 L (1.1-1.8) Urine Color (YELLOW) Urine Appearance (CLEAR) Urine pH (4.7-8.0) Ur Specific [place] (1.005-1.035) Urine Protein (<30 mg/dL) mg/dL Urine Glucose (UA) (NEGATIVE) mg/dL Urine Ketones (NEGATIVE) mg/dL Urine Blood (NEGATIVE) Urine Nitrate (NEGATIVE) Urine Bilirubin (NEGATIVE) Urine Urobilinogen (<1 E.U./dL) E.U./dL Ur Leukocyte Esterase (NEGATIVE) Bonnie/uL 05/07/18 Range/Units 16:27 WBC (4.5-11.0) 10^3/ul RBC (3.5-6.1) 10^6/uL Hgb (12.0-16.0) g/dL Hct (36.0-48.0) % MCV (80.0-105.0) fl MCH (25.0-35.0) pg MCHC (31.0-37.0) g/dl RDW (11.5-14.5) % Plt Count (120.0-450.0) 10^3/uL MPV (7.0-11.0) fl Gran % (50.0-68.0) % Lymph % (Auto) (22.0-35.0) % [place] % (Auto) (1.0-6.0) % Eos % (Auto) (1.5-5.0) % Baso % (Auto) (0.0-3.0) % Gran # (1.4-6.5) Lymph # (Auto) (1.2-3.4) [place] # (Auto) (0.1-0.6) Eos # (Auto) (0.0-0.7) Baso # (Auto) (0.0-2.0) K/mm3 Sodium (132-148) mmol/L Potassium (3.6-5.0) mmol/L Chloride (98-107) mmol/L Carbon Dioxide (21-33) mmol/L Anion Gap (10-20) BUN (7-21) mg/dL Creatinine (0.7-1.2) mg/dl Est GFR ( Amer) Est GFR (Non-Af Amer) POC Glucose (mg/dL) 124 H (65-110) mg/dL Random Glucose (70-110) mg/dL Calcium (8.4-10.5) mg/dL Phosphorus (2.5-4.5) mg/dL Magnesium (1.7-2.2) mg/dL Total Bilirubin (0.2-1.3) mg/dL AST (14-36) U/L ALT (7-56) U/L Alkaline Phosphatase (38-126) U/L Total Protein (5.8-8.3) g/dL Albumin (3.0-4.8) g/dL Globulin gm/dL Albumin/Globulin Ratio (1.1-1.8) Urine Color (YELLOW) Urine Appearance (CLEAR) Urine pH (4.7-8.0) Ur Specific [place] (1.005-1.035) Urine Protein (<30 mg/dL) mg/dL Urine Glucose (UA) (NEGATIVE) mg/dL Urine Ketones (NEGATIVE) mg/dL Urine Blood (NEGATIVE) Urine Nitrate (NEGATIVE) Urine Bilirubin (NEGATIVE) Urine Urobilinogen (<1 E.U./dL) E.U./dL Ur Leukocyte Esterase (NEGATIVE) Bonnie/uL Laboratory Results - last 24 hr 02/20/18 02/20/18 02/21/18 16:27 21:45 05:25 WBC 11.9 H RBC 5.03 Hgb 12.9 Hct 39.3 MCV 78.1 L MCH 25.6 MCHC 32.8 RDW 14.9 H Plt Count 470 H MPV 8.7 Gran % 79.0 H Lymph % (Auto) 14.3 L [place] % (Auto) 5.7 Eos % (Auto) 0.7 L Baso % (Auto) 0.3 Gran # 9.39 H Lymph # (Auto) 1.7 [place] # (Auto) 0.7 H Eos # (Auto) 0.1 Baso # (Auto) 0.03 Sodium Potassium Chloride Carbon Dioxide Anion Gap BUN Creatinine Est GFR ( Amer) Est GFR (Non-Af Amer) POC Glucose (mg/dL) 124 H 132 H Random Glucose Calcium Phosphorus Magnesium Total Bilirubin AST ALT Alkaline Phosphatase Total Protein Albumin Globulin Albumin/Globulin Ratio Urine Color Urine Appearance Urine pH Ur Specific [place] Urine Protein Urine Glucose (UA) Urine Ketones Urine Blood Urine Nitrate Urine Bilirubin Urine Urobilinogen Ur Leukocyte Esterase 02/21/18 02/21/18 02/21/18 05:25 07:58 11:49 WBC RBC Hgb Hct MCV MCH MCHC RDW Plt Count MPV Gran % Lymph % (Auto) [place] % (Auto) Eos % (Auto) Baso % (Auto) Gran # Lymph # (Auto) [place] # (Auto) Eos # (Auto) Baso # (Auto) Sodium 141 Potassium 3.7 Chloride 104 Carbon Dioxide 25 Anion Gap 17 BUN 16 Creatinine 1.0 Est GFR ( Amer) > 60 Est GFR (Non-Af Amer) 58 POC Glucose (mg/dL) 111 H 136 H Random Glucose 136 H Calcium 9.4 Phosphorus 3.9 Magnesium 2.1 Total Bilirubin 0.6 AST 37 H ALT 23 Alkaline Phosphatase 94 Total Protein 8.5 H Albumin 4.3 Globulin 4.2 Albumin/Globulin Ratio 1.0 L Urine Color Urine Appearance Urine pH Ur Specific [place] Urine Protein Urine Glucose (UA) Urine Ketones Urine Blood Urine Nitrate Urine Bilirubin Urine Urobilinogen Ur Leukocyte Esterase 02/21/18 12:28 WBC RBC Hgb Hct MCV MCH MCHC RDW Plt Count MPV Gran % Lymph % (Auto) [place] % (Auto) Eos % (Auto) Baso % (Auto) Gran # Lymph # (Auto) [place] # (Auto) Eos # (Auto) Baso # (Auto) Sodium Potassium Chloride Carbon Dioxide Anion Gap BUN Creatinine Est GFR ( Amer) Est GFR (Non-Af Amer) POC Glucose (mg/dL) Random Glucose Calcium Phosphorus Magnesium Total Bilirubin AST ALT Alkaline Phosphatase Total Protein Albumin Globulin Albumin/Globulin Ratio Urine Color Yellow Urine Appearance Clear Urine pH 5.5 Ur Specific [place] <= 1.005 Urine Protein Negative Urine Glucose (UA) Negative Urine Ketones Negative Urine Blood Negative Urine Nitrate Negative Urine Bilirubin Negative Urine Urobilinogen 0.2 Ur Leukocyte Esterase Negative Critical Care Progress Note - Nutrition Nutrition: Nutrition Category Date Time Status Heart Healthy Diet [DIET] Diets 02/20/18 Breakfast Ordered Attending/Attestation - Attestation I have personally seen and examined this patient.: Yes I have fully participated in the care of the patient.: Yes I have reviewed all pertinent clinical information: Yes Notes (Text): 02/21/18 15:[address] Keys note ccm time 40 min
[2018-02-22 06:51] LABS: BASO # 0.05 K/mm3 (0.0-2.0); BASO % 0.6 % (0.0-3.0); EOS # 0.3 (0.0-0.7); GRAN # 4.75 (1.4-6.5); GRAN % 56.5 % (50.0-68.0); HEMOGLOBIN 12.9 g/dL (12.0-16.0); LYMPH # 2.7 (1.2-3.4); LYMPH % 32.5 % (22.0-35.0); MEAN CORPUSCULAR HGB CONC 32.9 g/dl (31.0-37.0); MONO # 0.6 (0.1-0.6); MONO % 7.4 % (1.0-6.0); RBC 4.96 10^6/uL (3.5-6.1); RED CELL DISTRIBUTION WIDTH 15.1 % (11.5-14.5); WHITE BLOOD COUNT 8.4 10^3/ul (4.5-11.0)
--- NOTE | 2018-02-22 07:07 | CP.PCM.PN ---
<Tanisha Arroyo - Last Filed: 02/22/18 14:58> Subjective - Date & Time of Evaluation Date of Evaluation: 02/22/18 Time of Evaluation: 09:47 - Subjective Subjective: PGY2 Neuro Progress note for Dr. Dumont Patient seen and examined at bedside. Nursing reports no acute events overnight. Patient is ao x 3 and reported she feels better this AM. Headache and dizziness has improved and patient report she feels better with her eye patch and the shade over the window. She is able to speak in full sentences and is logical in her thought process. Patient denied acute complaints of chest pain , palpitations, SOB, cough, abd pain, nausea, vomiting, bowel/bladder complaints , pain/swelling in her legs b/l. She is tolerating her diet and making good UO. Objective - Vital Signs/Intake and Output Vital Signs (last 24 hours): Temp Pulse Resp BP Pulse Ox 97.2 F L 72 19 148/82 99 02/21/18 08:28 02/22/18 06:51 02/22/18 06:51 02/22/18 06:51 02/22/18 06:51 - Medications Medications: Current Medications Acetaminophen (Tylenol 325mg Tab) 650 mg PO Q4 PRN PRN Reason: Fever >100.4 F Last Admin: 02/22/18 06:22 Dose: 650 mg Amlodipine Besylate (Norvasc) 5 mg PO DAILY [facility] Last Admin: 02/21/18 09:42 Dose: 5 mg Ondansetron HCl (Zofran Inj) 4 mg IVP Q6H PRN PRN Reason: Nausea/Vomiting Last Admin: 02/21/18 02:50 Dose: 4 mg Pantoprazole Sodium (Protonix Ec Tab) 40 mg PO ACB [facility] Polyethylene Glycol (Miralax) 17 gm PO DAILY [facility] Last Admin: 02/21/18 09:42 Dose: 17 gm - Labs Labs: 02/21/18 05:25 02/21/18 05:25 PT 12.7 SECONDS (9.4-12.5) H 02/19/18 13:05 INR 1.11 (0.93-1.08) H 02/19/18 13:05 APTT 33.7 Seconds (25.1-36.5) 02/19/18 13:05 - Constitutional Appears: Non-toxic, No Acute Distress - Head Exam Head Exam: ATRAUMATIC, NORMAL INSPECTION, NORMOCEPHALIC - Eye Exam Eye Exam: Normal appearance. absent: Conjunctival injection, EOMI (upward gaze palsy; ), Scleral icterus Pupil Exam: PERRL Additional comments: L eye patch on - ENT Exam ENT Exam: Mucous Membranes Moist - Neck Exam Neck Exam: Normal Inspection. absent: Lymphadenopathy - Respiratory Exam Respiratory Exam: NORMAL BREATHING PATTERN. absent: Respiratory Distress - Cardiovascular Exam Cardiovascular Exam: +S1, +S2 - GI/Abdominal Exam GI & Abdominal Exam: Soft. absent: Tenderness - Extremities Exam Extremities Exam: Normal Capillary Refill, Normal Inspection. absent: Pedal Edema, Tenderness - Neurological Exam Neurological Exam: Alert, Awake, Oriented x3. absent: CN II-XII Intact (upward gaze palsy) Neuro motor strength exam: Left Upper Extremity: 5, Right Upper Extremity: 5, Left Lower Extremity: 5, Right Lower Extremity: 5 - Psychiatric Exam Psychiatric exam: Normal Affect, Normal Mood - Skin Skin Exam: Dry, Intact, Normal Color, Warm Assessment and Plan - Assessment and Plan (Free Text) Assessment: 52yo female PMHx HTN admitted for left thalamic intracerebral hemorrhage. Plan: -f/u repeat head CT in the AM on 02/23 -start patient on Amantadine -Head CT 02/21: redemonstrated L thalamic hematoma which measures 19.2 x 19mm in greatest dimension. The hematoma compresses the posterior margin of the 3rd ventricle with mild dilatation proximal aspect of the 3rd ventricle as well as the lateral ventricles. Moderate chronic white matter ischemic changes; note that a component of transependymal edema not excluded. Few scattered chronic b/ l basal nuclei lacunar type infarcts. -Echo: mild-mod concentric LVH; EF wnl -MRA: unremarkable -repeat head CT 02/20: no acute changes -Head CT on admission 02/19: acute hemorrhage in medial aspect of the L thalamus near the midline. Appears to extend into the 3rd ventricle. Hemorrhage measures 18mm AP x 15mm wide by 13mm in height. -BP controlled on norvasc 10mg po qd. Goal SBP 120-140mmHg -HoB above 35 degrees -recommend eye patch for left eye -maintain euthermia and euglycemia -Cont Neuro checks -Cont Aspiration precautions -Avoid sedative drugs -Seizure precautions -PT/OT -recommend rehab upon discharge Discussed with Dr. Tim Arroyo PGY2 <Huey Dumont - Last Filed: 02/23/18 12:53> Objective - Vital Signs/Intake and Output Vital Signs (last 24 hours): Temp Pulse Resp BP Pulse Ox 98.6 F 70 18 156/90 H 98 02/23/18 08:36 02/23/18 11:57 02/23/18 08:36 02/23/18 11:57 02/23/18 08:36 Intake and Output: 02/23/18 02/23/18 06:59 18:59 Intake Total 120 Output Total 300 Balance -180 - Medications Medications: Current Medications Acetaminophen (Tylenol 325mg Tab) 650 mg PO Q4 PRN PRN Reason: Fever >100.4 F Last Admin: 02/22/18 21:56 Dose: 650 mg Amantadine HCl (Amantadine 100 Mg Cap) 100 mg PO DAILY [facility] Last Admin: 02/23/18 10:35 Dose: 100 mg Amlodipine Besylate (Norvasc) 10 mg PO DAILY [facility] Last Admin: 02/23/18 09:59 Dose: 10 mg Hydralazine HCl (Apresoline) 10 mg IVP Q6H PRN PRN Reason: SBP greater than 140 Metoprolol Tartrate (Lopressor) 12.5 mg PO BID [facility] Last Admin: 02/23/18 10:52 Dose: 12.5 mg Ondansetron HCl (Zofran Inj) 4 mg IVP Q6H PRN PRN Reason: Nausea/Vomiting Last Admin: 02/21/18 02:50 Dose: 4 mg Pantoprazole Sodium (Protonix Ec Tab) 40 mg PO ACB [facility] Last Admin: 02/23/18 09:59 Dose: 40 mg Polyethylene Glycol (Miralax) 17 gm PO DAILY [facility] Last Admin: 02/23/18 09:58 Dose: 17 gm - Labs Labs: 02/23/18 06:00 02/23/18 06:30 PT 12.7 SECONDS (9.4-12.5) H 02/19/18 13:05 INR 1.11 (0.93-1.08) H 02/19/18 13:05 APTT 33.7 Seconds (25.1-36.5) 02/19/18 13:05 Attending/Attestation - Attestation I have personally seen and examined this patient.: Yes I have fully participated in the care of the patient.: Yes I have reviewed all pertinent clinical information, including history, physical exam and plan: Yes
[2018-02-22 07:28] LABS: ALT/SGPT 18 U/L (7-56); AST/SGOT 33 U/L (14-36); BLOOD UREA NITROGEN 21 mg/dL (7-21); CALCIUM 9.4 mg/dL (8.4-10.5); GFR AFRICAN-AMERICAN > 60; GFR NON-AFRICAN AMERICAN 52
--- NOTE | 2018-02-22 07:38 | CP.PCM.PN ---
<JorgeHaleigh - Last Filed: 02/22/18 10:59> Subjective - Date & Time of Evaluation Date of Evaluation: 02/22/18 Time of Evaluation: 07:32 - Subjective Subjective: Haleigh Patel DO, PGY-1 Patient seen and examined at bedside. Patient speech is logical and fluid, untill she is asked a specific question, such as, " what medications do you take ?" or what pharmacy do you go to?" Then, she has to pause, concentrate, and has difficulty retrieving the knowledge or word. She complains of left eye pain and a mild left sided headache but had no nausea or vomiting overnight. Nursing did not note any events overnight. I was able to speak to her family about her pharmacy. Objective - Vital Signs/Intake and Output Vital Signs (last 24 hours): Temp Pulse Resp BP Pulse Ox 98.1 F 72 19 148/82 99 02/22/18 06:00 02/22/18 06:51 02/22/18 06:51 02/22/18 06:51 02/22/18 06:51 - Medications Medications: Current Medications Acetaminophen (Tylenol 325mg Tab) 650 mg PO Q4 PRN PRN Reason: Fever >100.4 F Last Admin: 02/22/18 06:22 Dose: 650 mg Amlodipine Besylate (Norvasc) 5 mg PO DAILY [facility] Last Admin: 02/21/18 09:42 Dose: 5 mg Ondansetron HCl (Zofran Inj) 4 mg IVP Q6H PRN PRN Reason: Nausea/Vomiting Last Admin: 02/21/18 02:50 Dose: 4 mg Pantoprazole Sodium (Protonix Ec Tab) 40 mg PO ACB [facility] Polyethylene Glycol (Miralax) 17 gm PO DAILY [facility] Last Admin: 02/21/18 09:42 Dose: 17 gm - Labs Labs: 02/22/18 05:40 02/22/18 05:40 PT 12.7 SECONDS (9.4-12.5) H 02/19/18 13:05 INR 1.11 (0.93-1.08) H 02/19/18 13:05 APTT 33.7 Seconds (25.1-36.5) 02/19/18 13:05 - Constitutional Appears: Non-toxic, No Acute Distress - Head Exam Head Exam: ATRAUMATIC, NORMOCEPHALIC - Eye Exam Additional comments: superior gaze palsy with left eye patch - ENT Exam ENT Exam: Mucous Membranes Moist, Normal Oropharynx - Neck Exam Neck Exam: Normal Inspection - Respiratory Exam Respiratory Exam: Clear to Ausculation Bilateral, NORMAL BREATHING PATTERN. absent: Accessory Muscle Use - Cardiovascular Exam Cardiovascular Exam: RRR, +S1, +S2 - GI/Abdominal Exam GI & Abdominal Exam: Soft, Normal Bowel Sounds - Extremities Exam Extremities Exam: Normal Inspection. absent: Calf Tenderness - Neurological Exam Neurological Exam: Alert, Awake, Oriented x3 - Psychiatric Exam Psychiatric exam: Normal Affect, Normal Mood - Skin Skin Exam: Dry, Intact, Normal Color, Warm Assessment and Plan - Assessment and Plan (Free Text) Assessment: 52 year old female with a past medical history significant for hypertension who presented with hypertensive emergency and was found to have an acute intraparenchymal hemmorhage in the left thalamic region with deficits in extraocular movement and sensation. Patient is being closely monitored in the ICU with neurology and neurosurgery consulted. Plan: 1) Intraparenchymal hemmorhage: - Non-contrast CT head on 02/21: Re-demonstrated is a left thalamic hematoma which measures approximately 19.2 x 19.0 mm in greatest dimension. The hematoma compresses the posterior margin of the 3rd ventricle with mild dilatation proximal aspect of the 3rd ventricle as well as the lateral ventricles. Moderate chronic white matter ischemic changes ; note that a component of transependymal edema not excluded. Few scattered chronic bilateral basal nuclei lacunar type infarcts. Re- demonstrated are postoperative changes of the nasal cavity and paranasal sinuses mentioned above. - Neurology and Neurosurgery recommend repeat CT tomorrow, day 5, to evaluate for delayed onset hydrocephalus. - HOB 30 degrees - left eye patch - Speech therapy - Cardene drip discontinued, will resume ___ and ____ home medications - HHD diet - aspiration, seizure, and fall precautions - PT ordered, unclear if they can help patient at this time - Maintain euthermia, euglycemia, normotension - Echocardiogram shows that the LV cavity is normal sized, there is mild to moderate concentric LVH, normal LVEF. - Zofran 4 mg PRN for nausea - Appreciate neurology and neurosurgery recommendations 2) Hypertension - Amlodipine 10 mg - Note: patient was on Nebivolol 10 mg daily at home 3) GI/DVT prophylaxis - Protonix 40 and SCD Case reviewed and discussed with Dr. Escalona <Brendan Escalona - Last Filed: 02/23/18 14:14> Objective - Vital Signs/Intake and Output Vital Signs (last 24 hours): Temp Pulse Resp BP Pulse Ox 98.6 F 70 18 156/90 H 98 02/23/18 08:36 02/23/18 11:57 02/23/18 08:36 02/23/18 11:57 02/23/18 08:36 Intake and Output: 02/23/18 02/23/18 06:59 18:59 Intake Total 120 Output Total 300 Balance -180 - Medications Medications: Current Medications Acetaminophen (Tylenol 325mg Tab) 650 mg PO Q4 PRN PRN Reason: Fever >100.4 F Last Admin: 02/22/18 21:56 Dose: 650 mg Amantadine HCl (Amantadine 100 Mg Cap) 100 mg PO DAILY [facility] Last Admin: 02/23/18 10:35 Dose: 100 mg Amlodipine Besylate (Norvasc) 10 mg PO DAILY [facility] Last Admin: 02/23/18 09:59 Dose: 10 mg Hydralazine HCl (Apresoline) 10 mg IVP Q6H PRN PRN Reason: SBP greater than 140 Metoprolol Tartrate (Lopressor) 12.5 mg PO BID [facility] Last Admin: 02/23/18 10:52 Dose: 12.5 mg Ondansetron HCl (Zofran Inj) 4 mg IVP Q6H PRN PRN Reason: Nausea/Vomiting Last Admin: 02/21/18 02:50 Dose: 4 mg Pantoprazole Sodium (Protonix Ec Tab) 40 mg PO ACB [facility] Last Admin: 02/23/18 09:59 Dose: 40 mg Polyethylene Glycol (Miralax) 17 gm PO DAILY [facility] Last Admin: 02/23/18 09:58 Dose: 17 gm Valproate Sodium (Depakene Cap) 500 mg PO DAILY [facility] - Labs Labs: 02/23/18 06:00 02/23/18 06:30 PT 12.7 SECONDS (9.4-12.5) H 02/19/18 13:05 INR 1.11 (0.93-1.08) H 02/19/18 13:05 APTT 33.7 Seconds (25.1-36.5) 02/19/18 13:05 Attending/Attestation - Attestation I have personally seen and examined this patient.: Yes I have fully participated in the care of the patient.: Yes I have reviewed all pertinent clinical information, including history, physical exam and plan: Yes Notes (Text): I have seen and examined patient with the resident. Agree with the note dictated above with the following additions/exceptions: Briefly this is 52 year old female with history of tobacco use, morbid obesity (BMI 43), s/p gastric by pass surgery who was admitted for evaluation of dizziness, headache and found to have left thalamic intra cranial hemorrhage. Her BP has improved. She is off of cardene drip and was restarted on norvasc. 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 Neurologist and neurosurgeon on board. Maintain normothermia , normoglycemia and aggressive BP control. Swallow eval appreciated. Keep HOB elevated at 30 degrees. Echo revealed mild to moderate concentric LVH. PT eval pending. Tobacco cessation counselling provided. Upon discharge patient will follow up with Dr Gaitan.
[2018-02-22] MEDS: POLYETHYLENE GLYCOL 3350 17 GM/Dose PACKET PO SCH (10:26)
[2018-02-22] MEDS: Pantoprazole 40 mg EC Tab PO SCH (10:26)
[2018-02-23 07:01] LABS: BASO # 0.12 K/mm3 (0.0-2.0); BASO % 1.4 % (0.0-3.0); EOS # 0.3 (0.0-0.7); EOS % 3.4 % (1.5-5.0); GRAN # 4.06 (1.4-6.5); GRAN % 48.8 % (50.0-68.0); HEMOGLOBIN 12.6 g/dL (12.0-16.0); LYMPH # 3.2 (1.2-3.4); LYMPH % 38.6 % (22.0-35.0); MEAN CELL VOLUME 79.1 fl (80.0-105.0); MEAN CORPUSCULAR HEMOGLOBIN 25.6 pg (25.0-35.0); MEAN CORPUSCULAR HGB CONC 32.4 g/dl (31.0-37.0); MONO # 0.7 (0.1-0.6); MONO % 7.8 % (1.0-6.0); RBC 4.92 10^6/uL (3.5-6.1); WHITE BLOOD COUNT 8.3 10^3/ul (4.5-11.0)
[2018-02-23 07:19] LABS: ALB/GLOB RATIO 1.1 (1.1-1.8); ALBUMIN 4.2 g/dL (3.0-4.8); ALT/SGPT 33 U/L (7-56); AST/SGOT 30 U/L (14-36); BLOOD UREA NITROGEN 23 mg/dL (7-21); CALCIUM 9.3 mg/dL (8.4-10.5); GFR AFRICAN-AMERICAN > 60; GFR NON-AFRICAN AMERICAN 58
--- NOTE | 2018-02-23 07:26 | CP.PCM.PN ---
<Tanisha Arroyo - Last Filed: 02/23/18 14:11> Subjective - Date & Time of Evaluation Date of Evaluation: 02/23/18 Time of Evaluation: 08:00 - Subjective Subjective: PGY2 Neuro Progress note for Dr. Dumont Patient seen and examined at bedside. Nursing reports no acute events overnight. Patient is ao x 3. She complains of a frontal headache rated 5/10 in intensity and dull in nature. Patient denies any nausea/vomiting associated with the headache. She reports she can see normally at times but if she concentrates on an object she sometimes sees double. Patient is otherwise feeling better. Denies acute complaints of fever, chills, dizziness, chest pain , palpitations, SOB, cough, abd pain, bowel/bladder complaints, pain/swelling in legs, and decreased appetite. Objective - Vital Signs/Intake and Output Vital Signs (last 24 hours): Temp Pulse Resp BP Pulse Ox 98.5 F 87 19 154/90 H 99 02/22/18 20:55 02/22/18 20:55 02/22/18 20:55 02/22/18 22:03 02/22/18 20:55 Intake and Output: 02/23/18 02/23/18 06:59 18:59 Intake Total 120 Output Total 300 Balance -180 - Medications Medications: Current Medications Acetaminophen (Tylenol 325mg Tab) 650 mg PO Q4 PRN PRN Reason: Fever >100.4 F Last Admin: 02/22/18 21:56 Dose: 650 mg Amantadine HCl (Amantadine 100 Mg Cap) 100 mg PO [facility]ILY [facility] Last Admin: 02/22/18 13:03 Dose: 100 mg Amlodipine Besylate (Norvasc) 10 mg PO DAILY [facility] Last Admin: 02/22/18 10:25 Dose: 10 mg Ondansetron HCl (Zofran Inj) 4 mg IVP Q6H PRN PRN Reason: Nausea/Vomiting Last Admin: 02/21/18 02:50 Dose: 4 mg Pantoprazole Sodium (Protonix Ec Tab) 40 mg PO ACB [facility] Last Admin: 02/22/18 10:26 Dose: 40 mg Polyethylene Glycol (Miralax) 17 gm PO DAILY [facility] Last Admin: 02/22/18 10:26 Dose: 17 gm - Labs Labs: 02/23/18 06:00 02/23/18 06:30 PT 12.7 SECONDS (9.4-12.5) H 02/19/18 13:05 INR 1.11 (0.93-1.08) H 02/19/18 13:05 APTT 33.7 Seconds (25.1-36.5) 02/19/18 13:05 - Constitutional Appears: Non-toxic, No Acute Distress - Head Exam Head Exam: ATRAUMATIC, NORMAL INSPECTION, NORMOCEPHALIC - Eye Exam Eye Exam: Normal appearance. absent: Conjunctival injection, EOMI, Scleral icterus Pupil Exam: PERRL Additional comments: L eye patch in place upward gaze palsy b/l - ENT Exam ENT Exam: Mucous Membranes Moist - Respiratory Exam Respiratory Exam: NORMAL BREATHING PATTERN. absent: Accessory Muscle Use, Respiratory Distress - Cardiovascular Exam Cardiovascular Exam: +S1, +S2 - GI/Abdominal Exam GI & Abdominal Exam: Soft. absent: Tenderness - Rectal Exam Rectal Exam: Deferred - Neurological Exam Neurological Exam: Alert, Awake, Oriented x3. absent: Motor Sensory Deficit Additional comments: upward gaze palsy sensation and motor strength intact throughout - Psychiatric Exam Psychiatric exam: Normal Affect, Normal Mood - Skin Skin Exam: Dry, Intact, Normal Color, Warm Assessment and Plan - Assessment and Plan (Free Text) Assessment: 52yo female PMHx HTN admitted for left thalamic intracerebral hemorrhage. Plan: -Repeat Head CT 02/23: stable L thalamic intraparenchymal hemorrhage measure 1.8cm greatest dimension. Limited local edema and mass effect identifed. Stable pre-existing periventricular and centrum semiovale white matter lucency. -Patient given 2gm magsulfate for headache and started on depakote 500mg qdaily -Continue Amantadine 100mg qdaily -Continue BP control with norvasc and lopressor -Head CT 02/21: redemonstrated L thalamic hematoma which measures 19.2 x 19mm in greatest dimension. The hematoma compresses the posterior margin of the 3rd ventricle with mild dilatation proximal aspect of the 3rd ventricle as well as the lateral ventricles. Moderate chronic white matter ischemic changes; note that a component of transependymal edema not excluded. Few scattered chronic b/ l basal nuclei lacunar type infarcts. -Echo: mild-mod concentric LVH; EF wnl -MRA: unremarkable -repeat head CT 02/20: no acute changes -Head CT on admission 02/19: acute hemorrhage in medial aspect of the L thalamus near the midline. Appears to extend into the 3rd ventricle. Hemorrhage measures 18mm AP x 15mm wide by 13mm in height. -HoB above 35 degrees -recommend eye patch for left eye -maintain euthermia and euglycemia -Cont Neuro checks -Cont Aspiration precautions -Avoid sedative drugs -Seizure precautions -PT/OT -recommend rehab upon discharge Discussed with Dr. Tim Arroyo PGY2 <Huey Dumont - Last Filed: 02/23/18 18:46> Objective - Vital Signs/Intake and Output Vital Signs (last 24 hours): Temp Pulse Resp BP Pulse Ox 99.0 F 68 19 139/80 99 02/23/18 18:42 02/23/18 17:27 02/23/18 17:27 02/23/18 17:27 02/23/18 17:27 Intake and Output: 02/23/18 02/23/18 06:59 18:59 Intake Total 120 Output Total 300 Balance -180 - Medications Medications: Current Medications Acetaminophen (Tylenol 325mg Tab) 650 mg PO Q4 PRN PRN Reason: Fever >100.4 F Last Admin: 02/22/18 21:56 Dose: 650 mg Amantadine HCl (Amantadine 100 Mg Cap) 100 mg PO DAILY [facility] Last Admin: 02/23/18 10:35 Dose: 100 mg Amlodipine Besylate (Norvasc) 10 mg PO DAILY [facility] Last Admin: 02/23/18 09:59 Dose: 10 mg Hydralazine HCl (Apresoline) 10 mg IVP Q6H PRN PRN Reason: SBP greater than 140 Metoprolol Tartrate (Lopressor) 12.5 mg PO BID [facility] Last Admin: 02/23/18 17:24 Dose: 12.5 mg Ondansetron HCl (Zofran Inj) 4 mg IVP Q6H PRN PRN Reason: Nausea/Vomiting Last Admin: 02/21/18 02:50 Dose: 4 mg Pantoprazole Sodium (Protonix Ec Tab) 40 mg PO ACB [facility] Last Admin: 02/23/18 09:59 Dose: 40 mg Polyethylene Glycol (Miralax) 17 gm PO DAILY [facility] Last Admin: 02/23/18 09:58 Dose: 17 gm Valproate Sodium (Depakene Cap) 500 mg PO DAILY [facility] Last Admin: 02/23/18 14:27 Dose: 500 mg - Labs Labs: 02/23/18 06:00 02/23/18 06:30 PT 12.7 SECONDS (9.4-12.5) H 02/19/18 13:05 INR 1.11 (0.93-1.08) H 02/19/18 13:05 APTT 33.7 Seconds (25.1-36.5) 02/19/18 13:05 Attending/Attestation - Attestation I have personally seen and examined this patient.: Yes I have fully participated in the care of the patient.: Yes I have reviewed all pertinent clinical information, including history, physical exam and plan: Yes
--- NOTE | 2018-02-23 09:54 | CT ---
PROCEDURE: CT HEAD WITHOUT CONTRAST. HISTORY: monitor bleed COMPARISON: Unenhanced head CT 02/21/2018. TECHNIQUE: Axial computed tomography images were obtained through the head/brain without intravenous contrast. Radiation dose: Total exam DLP = 886.26 mGy-cm. This CT exam was performed using one or more of the following dose reduction techniques: Automated exposure control, adjustment of the mA and/or kV according to patient size, and/or use of iterative reconstruction technique. FINDINGS: HEMORRHAGE: Stable intraparenchymal hemorrhage is identified at the medial left thalamus measuring 1.8 x 1.7 cm with no interval increase in volume appreciable grossly. Local edema is appreciated surrounding the hemorrhagic collection. No new intracranial hemorrhagic collection identified. BRAIN: Although 3rd ventricle is somewhat shifted toward the right no additional midline shift is apparent. White matter lucency persists in the periventricular and centrum semiovale distributions which is appear static context of the patient's age of 52 years and underlying disease is not excluded although this could reflect early chronic microangiopathy, particularly if the patient is an angiopath such is a diabetic. Transependymal edema is a possibility as well. No cortical edema is identified throughout in the posterior fossa contents appear unremarkable. VENTRICLES: Unremarkable. No hydrocephalus. CALVARIUM: Unremarkable. PARANASAL SINUSES: Unremarkable as visualized. No significant inflammatory changes. MASTOID AIR CELLS: Unremarkable as visualized. No inflammatory changes. OTHER FINDINGS: None. IMPRESSION: Stable left thalamic intraparenchymal hemorrhage measure 1.8 cm greatest dimension. Limited local edema and mass effect are identified. Stable pre-existing periventricular and centrum semiovale white matter lucency.
[2018-02-23] MEDS: POLYETHYLENE GLYCOL 3350 17 GM/Dose PACKET PO SCH (09:58)
[2018-02-23] MEDS: Pantoprazole 40 mg EC Tab PO SCH (09:59)
--- NOTE | 2018-02-23 10:08 | CP.PCM.PN ---
<Haleigh Patel - Last Filed: 02/23/18 10:27> Subjective - Date & Time of Evaluation Date of Evaluation: 02/23/18 Time of Evaluation: 10:05 - Subjective Subjective: Hospitalist Service Patient seen and examined at bedside. Patient reports left sided headache; denies nausea or vomiting. Patient passed a bowel movement yesterday. Patient reports blurry vision and requests for her glasses. Nurse reports no events overnight. Objective - Vital Signs/Intake and Output Vital Signs (last 24 hours): Temp Pulse Resp BP Pulse Ox 98.6 F 74 18 146/86 98 02/23/18 08:36 02/23/18 08:36 02/23/18 08:36 02/23/18 09:59 02/23/18 08:36 Intake and Output: 02/23/18 02/23/18 06:59 18:59 Intake Total 120 Output Total 300 Balance -180 - Medications Medications: Current Medications Acetaminophen (Tylenol 325mg Tab) 650 mg PO Q4 PRN PRN Reason: Fever >100.4 F Last Admin: 02/22/18 21:56 Dose: 650 mg Amantadine HCl (Amantadine 100 Mg Cap) 100 mg PO DAILY [facility] Last Admin: 02/22/18 13:03 Dose: 100 mg Amlodipine Besylate (Norvasc) 10 mg PO DAILY [facility] Last Admin: 02/23/18 09:59 Dose: 10 mg Metoprolol Tartrate (Lopressor) 12.5 mg PO BID [facility] Ondansetron HCl (Zofran Inj) 4 mg IVP Q6H PRN PRN Reason: Nausea/Vomiting Last Admin: 02/21/18 02:50 Dose: 4 mg Pantoprazole Sodium (Protonix Ec Tab) 40 mg PO ACB [facility] Last Admin: 02/23/18 09:59 Dose: 40 mg Polyethylene Glycol (Miralax) 17 gm PO DAILY [facility] Last Admin: 02/23/18 09:58 Dose: 17 gm - Labs Labs: 02/23/18 06:00 02/23/18 06:30 PT 12.7 SECONDS (9.4-12.5) H 02/19/18 13:05 INR 1.11 (0.93-1.08) H 02/19/18 13:05 APTT 33.7 Seconds (25.1-36.5) 02/19/18 13:05 - Constitutional Appears: Well, Non-toxic - Head Exam Head Exam: ATRAUMATIC, NORMOCEPHALIC - Eye Exam Additional comments: superior gaze palsy - ENT Exam ENT Exam: Mucous Membranes Moist - Neck Exam Neck Exam: Normal Inspection - Respiratory Exam Respiratory Exam: Clear to Ausculation Bilateral, NORMAL BREATHING PATTERN. absent: Accessory Muscle Use - Cardiovascular Exam Cardiovascular Exam: RRR, +S1, +S2 - GI/Abdominal Exam GI & Abdominal Exam: Soft. absent: Guarding - Extremities Exam Extremities Exam: Normal Inspection. absent: Calf Tenderness - Neurological Exam Neurological Exam: Awake Neuro motor strength exam: Left Upper Extremity: 5, Right Upper Extremity: 5, Left Lower Extremity: 5, Right Lower Extremity: 5 Additional comments: tongue midline, without fasciculation - Psychiatric Exam Psychiatric exam: Normal Affect, Normal Mood - Skin Skin Exam: Dry, Intact, Normal Color, Warm Assessment and Plan - Assessment and Plan (Free Text) Assessment: 52 year old female with a past medical history significant for hypertension who presented with hypertensive emergency and was found to have an acute intraparenchymal hemmorhage in the left thalamic region with deficits in extraocular movement and sensation. Plan: 1) Intraparenchymal hemmorhage likely secondary to hypertensive emergency with superior gaze palsy and difficulty answering specific questions/word finding difficulty - Non-contrast CT head impression on 02/23 reads as stable left thalamic intraparenchymal hemorrhage measure 1.8 cm greatest dimension. Limited local edema and mass effect are identified. Stable pre-existing periventricular and centrum semiovale white matter lucency. - HOB 32.5 degrees - left eye patch - Speech therapy - Goal blood pressure of Systolic between 120-140 - Amlodipine 10 mg - Metoprolol Tartarate 12.5 BID - Amantadine 100 mg PO Daily - HHD diet - aspiration, seizure, and fall precautions - PT recommends Acute rehab or [facility] if patients progress is poor - Echocardiogram shows that the LV cavity is normal sized, there is mild to moderate concentric LVH, normal LVEF. 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 Escalona <Brendan Escalona - Last Filed: 02/23/18 14:17> Objective - Vital Signs/Intake and Output Vital Signs (last 24 hours): Temp Pulse Resp BP Pulse Ox 98.6 F 70 18 156/90 H 98 02/23/18 08:36 02/23/18 11:57 02/23/18 08:36 02/23/18 11:57 02/23/18 08:36 Intake and Output: 02/23/18 02/23/18 06:59 18:59 Intake Total 120 Output Total 300 Balance -180 - Medications Medications: Current Medications Acetaminophen (Tylenol 325mg Tab) 650 mg PO Q4 PRN PRN Reason: Fever >100.4 F Last Admin: 02/22/18 21:56 Dose: 650 mg Amantadine HCl (Amantadine 100 Mg Cap) 100 mg PO DAILY [facility] Last Admin: 02/23/18 10:35 Dose: 100 mg Amlodipine Besylate (Norvasc) 10 mg PO DAILY [facility] Last Admin: 02/23/18 09:59 Dose: 10 mg Hydralazine HCl (Apresoline) 10 mg IVP Q6H PRN PRN Reason: SBP greater than 140 Metoprolol Tartrate (Lopressor) 12.5 mg PO BID [facility] Last Admin: 02/23/18 10:52 Dose: 12.5 mg Ondansetron HCl (Zofran Inj) 4 mg IVP Q6H PRN PRN Reason: Nausea/Vomiting Last Admin: 02/21/18 02:50 Dose: 4 mg Pantoprazole Sodium (Protonix Ec Tab) 40 mg PO ACB [facility] Last Admin: 02/23/18 09:59 Dose: 40 mg Polyethylene Glycol (Miralax) 17 gm PO DAILY [facility] Last Admin: 02/23/18 09:58 Dose: 17 gm Valproate Sodium (Depakene Cap) 500 mg PO DAILY [facility] - Labs Labs: 02/23/18 06:00 02/23/18 06:30 PT 12.7 SECONDS (9.4-12.5) H 02/19/18 13:05 INR 1.11 (0.93-1.08) H 02/19/18 13:05 APTT 33.7 Seconds (25.1-36.5) 05/06/18 13:05 Attending/Attestation - Attestation I have personally seen and examined this patient.: Yes I have fully participated in the care of the patient.: Yes I have reviewed all pertinent clinical information, including history, physical exam and plan: Yes Notes (Text): I have seen and examined patient with the resident. Agree with the note dictated above with the following additions/exceptions: Briefly this is 52 year old female with history of tobacco use, morbid obesity (BMI 43), s/p gastric by pass surgery who was admitted for evaluation of dizziness, headache and found to have left thalamic intra cranial hemorrhage. Continue norvasc and add metoprolol. 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 Continue left eye patch. Neurologist and neurosurgeon on board. Maintain normothermia, normoglycemia and aggressive BP control. Patient complains of headache. Neurologist recommended magnesium and depakote. Swallow eval appreciated. Keep HOB elevated at 30 degrees. Echo revealed mild to moderate concentric LVH. PT eval recommending [facility]. Tobacco cessation counselling provided. Upon discharge patient will follow up with Dr Gaitan.
[2018-02-23] MEDS ORDERED: Magnesium Sulfate 2 GM in Sodium Chloride 0.9% 100 ML IVPB ONE (12:54)
--- NOTE | 2018-02-24 08:18 | CON ---
DATE: 02/23/2018 OPHTHALMOLOGY CONSULTATION HISTORY OF PRESENT ILLNESS: Ms. Laws is a 52-year-old black female who has a history of hypertension and suffered a left cerebrovascular accident approximately 4 days ago resulting in diplopia, basically she underwent an MRA as well as a CAT scan which showed a left cerebral hemorrhage extending to the mid brain. PHYSICAL EXAMINATION: Her visual acuity for near vision is 20/200 in the right eye and 21/100 left eye. She demonstrates a limitation of her extraocular movements consistent with a partial third nerve palsy. There is no evidence of any ptosis. The pupils are equal, round, and reactive to light 2 mm in size, both eyes. The remainder of the ophthalmic exam is unremarkable other than the fact that she experiences diplopia in various may of gaze. She has difficulty with superior gaze. RECOMMENDATIONS: It is recommended that; 1, her hypertension is controlled and; 2., that the left eye remains patched to prevent the diplopia. Once she is discharged from the hospital and finishes her rehabilitation at [facility], she will be seen in our office, [address] in [place] for further evaluation, which will include the incorporation of prism in her glasses to reduce the diplopia. In addition, I spoke with the patient that we would watch her over the next 6 months and see how much the third nerve resolves. At that time, if the patient is still experiencing diplopia, then it was recommended that she would have strabismus surgery to improve her condition. Travis Johns MD
--- NOTE | 2018-02-24 08:25 | CP.PCM.PN ---
Subjective - Date & Time of Evaluation Date of Evaluation: 02/24/18 Time of Evaluation: 07:00 - Subjective Subjective: PGY2 Neuro Progress note for Dr. Dumont Patient seen and examined at bedside. Nursing reports no acute events overnight. Patient had a slight h/a this AM which resolved with tylenol. She reports she feels much better and is eager to be discharged. She has been trying to see without the eye patch and reports the haziness and blurry vision is slowly improving. She feels more awake now and denied acute complaints of fever, chills, dizziness, chest pain, palpitations, SOB, cough, abd pain, nausea , vomiting, bowel/bladder complaints, pain/swelling in legs b/l. Objective - Vital Signs/Intake and Output Vital Signs (last 24 hours): Temp Pulse Resp BP Pulse Ox 99.0 F 68 19 139/80 99 02/23/18 18:42 02/24/18 06:00 02/23/18 17:27 02/23/18 17:27 02/23/18 17:27 Intake and Output: 02/24/18 02/24/18 06:59 18:59 Intake Total 420 Balance 420 - Medications Medications: Current Medications Acetaminophen (Tylenol 325mg Tab) 650 mg PO Q4 PRN PRN Reason: Fever >100.4 F Last Admin: 02/24/18 06:37 Dose: 650 mg Amantadine HCl (Amantadine 100 Mg Cap) 100 mg PO DAILY [facility] Last Admin: 02/23/18 10:35 Dose: 100 mg Amlodipine Besylate (Norvasc) 10 mg PO DAILY [facility] Last Admin: 02/23/18 09:59 Dose: 10 mg Hydralazine HCl (Apresoline) 10 mg IVP Q6H PRN PRN Reason: SBP greater than 140 Metoprolol Tartrate (Lopressor) 12.5 mg PO BID [facility] Last Admin: 02/23/18 17:24 Dose: 12.5 mg Ondansetron HCl (Zofran Inj) 4 mg IVP Q6H PRN PRN Reason: Nausea/Vomiting Last Admin: 02/21/18 02:50 Dose: 4 mg Pantoprazole Sodium (Protonix Ec Tab) 40 mg PO ACB [facility] Last Admin: 02/23/18 09:59 Dose: 40 mg Polyethylene Glycol (Miralax) 17 gm PO DAILY [facility] Last Admin: 02/23/18 09:58 Dose: 17 gm Valproate Sodium (Depakene Cap) 500 mg PO DAILY [facility] Last Admin: 02/23/18 14:27 Dose: 500 mg - Labs Labs: 02/23/18 06:00 02/23/18 06:30 PT 12.7 SECONDS (9.4-12.5) H 02/19/18 13:05 INR 1.11 (0.93-1.08) H 02/19/18 13:05 APTT 33.7 Seconds (25.1-36.5) 02/19/18 13:05 - Constitutional Appears: Non-toxic, No Acute Distress - Head Exam Head Exam: ATRAUMATIC, NORMAL INSPECTION, NORMOCEPHALIC - Eye Exam Eye Exam: Normal appearance, PERRL. absent: Conjunctival injection, EOMI ( upward gaze palsy), Scleral icterus Pupil Exam: PERRL Additional comments: L eye patch in place - ENT Exam ENT Exam: Mucous Membranes Moist - Neck Exam Neck Exam: Full ROM. absent: Lymphadenopathy - Respiratory Exam Respiratory Exam: NORMAL BREATHING PATTERN. absent: Accessory Muscle Use, Respiratory Distress - Cardiovascular Exam Cardiovascular Exam: +S1, +S2 - GI/Abdominal Exam GI & Abdominal Exam: Soft. absent: Tenderness - Extremities Exam Extremities Exam: Normal Capillary Refill, Normal Inspection. absent: Pedal Edema - Neurological Exam Neurological Exam: Alert, Awake, Oriented x3. absent: CN II-XII Intact (upward gaze palsy) - Psychiatric Exam Psychiatric exam: Normal Affect, Normal Mood - Skin Skin Exam: Dry, Intact, Normal Color, Warm Assessment and Plan - Assessment and Plan (Free Text) Assessment: 52yo female PMHx HTN admitted for left thalamic intracerebral hemorrhage. Plan: -patient to be discharged to rehab by primary today. -Continue amantadine and depakote and maintain BP control with norvasc and lopressor -Repeat Head CT 02/23: stable L thalamic intraparenchymal hemorrhage measure 1.8cm greatest dimension. Limited local edema and mass effect identifed. Stable pre-existing periventricular and centrum semiovale white matter lucency. -Head CT 02/21: redemonstrated L thalamic hematoma which measures 19.2 x 19mm in greatest dimension. The hematoma compresses the posterior margin of the 3rd ventricle with mild dilatation proximal aspect of the 3rd ventricle as well as the lateral ventricles. Moderate chronic white matter ischemic changes; note that a component of transependymal edema not excluded. Few scattered chronic b/ l basal nuclei lacunar type infarcts. -Echo: mild-mod concentric LVH; EF wnl -MRA: unremarkable -repeat head CT 02/20: no acute changes -Head CT on admission 02/19: acute hemorrhage in medial aspect of the L thalamus near the midline. Appears to extend into the 3rd ventricle. Hemorrhage measures 18mm AP x 15mm wide by 13mm in height. -recommend eye patch for left eye -Avoid sedative drugs -Patient recommended to work with physical therapy daily and rehab and to follow up with neurology upon discharge. Discussed with Dr. Tim Arroyo PGY2
[2018-02-24 08:32] VITALS: TEMP 98.7
[2018-02-24] MEDS: Pantoprazole 40 mg EC Tab PO SCH (08:44)
[2018-02-24] MEDS: POLYETHYLENE GLYCOL 3350 17 GM/Dose PACKET PO SCH ×2 (09:22→09:34)
--- NOTE | 2018-02-24 11:31 | CP.PCM.DIS ---
<Haleigh Patel - Last Filed: 02/24/18 14:56> Provider - Provider Date of Admission: 02/19/18 14:43 Attending physician: Brendan Escalona MD Consults: Dr. Dumont Neurology Dr. Johns Ophthalmology Dr. Crenshaw Neurosurgery Time Spent in preparation of Discharge (in minutes): 45 Hospital Course - Lab Results Lab Results: Micro Results 02/19/18 19:36 Naris MRSA Culture (Admit) - Final MRSA NOT DETECTED Most Recent Lab Values WBC 8.3 10^3/ul (4.5-11.0) 02/23/18 06:00 RBC 4.92 10^6/uL (3.5-6.1) 02/23/18 06:00 Hgb 12.6 g/dL (12.0-16.0) 02/23/18 06:00 Hct 38.9 % (36.0-48.0) 02/23/18 06:00 MCV 79.1 fl (80.0-105.0) L 02/23/18 06:00 MCH 25.6 pg (25.0-35.0) 02/23/18 06:00 MCHC 32.4 g/dl (31.0-37.0) 02/23/18 06:00 RDW 15.0 % (11.5-14.5) H 02/23/18 06:00 Plt Count 428 10^3/uL (120.0-450.0) 02/23/18 06:00 MPV 9.0 fl (7.0-11.0) 02/23/18 06:00 Gran % 48.8 % (50.0-68.0) L 02/23/18 06:00 Lymph % (Auto) 38.6 % (22.0-35.0) H 02/23/18 06:00 [facility] % (Auto) 7.8 % (1.0-6.0) H 02/23/18 06:00 Eos % (Auto) 3.4 % (1.5-5.0) 02/23/18 06:00 Baso % (Auto) 1.4 % (0.0-3.0) 02/23/18 06:00 Gran # 4.06 (1.4-6.5) 02/23/18 06:00 Lymph # (Auto) 3.2 (1.2-3.4) 02/23/18 06:00 [facility] # (Auto) 0.7 (0.1-0.6) H 02/23/18 06:00 Eos # (Auto) 0.3 (0.0-0.7) 02/23/18 06:00 Baso # (Auto) 0.12 K/mm3 (0.0-2.0) 02/23/18 06:00 PT 12.7 SECONDS (9.4-12.5) H 02/19/18 13:05 INR 1.11 (0.93-1.08) H 02/19/18 13:05 APTT 33.7 Seconds (25.1-36.5) 02/19/18 13:05 Sodium 146 mmol/L (132-148) 02/23/18 06:30 Potassium 3.7 mmol/L (3.6-5.0) 02/23/18 06:30 Chloride 109 mmol/L (98-107) H 02/23/18 06:30 Carbon Dioxide 26 mmol/L (21-33) 02/23/18 06:30 Anion Gap 15 (10-20) 02/23/18 06:30 BUN 23 mg/dL (7-21) H 02/23/18 06:30 Creatinine 1.0 mg/dl (0.7-1.2) 02/23/18 06:30 Est GFR ( Amer) > 60 02/23/18 06:30 Est GFR (Non-Af Amer) 58 02/23/18 06:30 POC Glucose (mg/dL) 73 mg/dL (65-110) 02/23/18 21:19 Random Glucose 100 mg/dL (70-110) 02/23/18 06:30 Hemoglobin A1c 5.9 % (4.2-6.5) 02/19/18 13:05 Calcium 9.3 mg/dL (8.4-10.5) 02/23/18 06:30 Phosphorus 3.9 mg/dL (2.5-4.5) 02/23/18 06:30 Magnesium 2.1 mg/dL (1.7-2.2) 02/23/18 06:30 Total Bilirubin 0.6 mg/dL (0.2-1.3) 02/23/18 06:30 AST 30 U/L (14-36) 02/23/18 06:30 ALT 33 U/L (7-56) 02/23/18 06:30 Alkaline Phosphatase 87 U/L (38-126) 02/23/18 06:30 Troponin I < 0.01 ng/mL 02/19/18 13:05 Total Protein 7.9 g/dL (5.8-8.3) 02/23/18 06:30 Albumin 4.2 g/dL (3.0-4.8) 02/23/18 06:30 Globulin 3.8 gm/dL 02/23/18 06:30 Albumin/Globulin Ratio 1.1 (1.1-1.8) 02/23/18 06:30 Triglycerides 51 mg/dL (35-160) 02/20/18 05:30 Cholesterol 178 mg/dL (130-200) 02/20/18 05:30 LDL Cholesterol Direct 97 mg/dL (0-129) 02/20/18 05:30 HDL Cholesterol 49 mg/dL (29-60) 02/20/18 05:30 Free T4 0.89 ng/dL (0.78-2.19) 02/20/18 05:30 TSH 3rd Generation 0.27 mIU/mL (0.46-4.68) L 02/20/18 05:30 Urine Color Yellow (YELLOW) 02/21/18 12:28 Urine Appearance Clear (CLEAR) 02/21/18 12:28 Urine pH 5.5 (4.7-8.0) 02/21/18 12:28 Ur Specific Shields <= 1.005 (1.005-1.035) 02/21/18 12:28 Urine Protein Negative mg/dL (<30 mg/dL) 02/21/18 12:28 Urine Glucose (UA) Negative mg/dL (NEGATIVE) 02/21/18 12:28 Urine Ketones Negative mg/dL (NEGATIVE) 02/21/18 12:28 Urine Blood Negative (NEGATIVE) 02/21/18 12:28 Urine Nitrate Negative (NEGATIVE) 02/21/18 12:28 Urine Bilirubin Negative (NEGATIVE) 02/21/18 12:28 Urine Urobilinogen 0.2 E.U./dL (<1 E.U./dL) 02/21/18 12:28 Ur Leukocyte Esterase Negative Bonnie/uL (NEGATIVE) 02/21/18 12:28 Valproic Acid 46 ug/mL (50.0-100.0) L 02/23/18 18:29 Blood Type O POSITIVE 02/19/18 13:58 Blood Type Confirm O POSITIVE 02/19/18 14:19 Antibody Screen Negative 02/19/18 13:58 BBK History Checked No verified bt 02/19/18 13:58 - Hospital Course Hospital Course: 52 year old female with a past medical history of tobacco use, morbid obesity ( BMI 43), s/p gastric bypass surgery, and hypertension who was admitted for evaluation of dizziness, headache and found to have left thalamic hemorrhage on CT and MRI. She was admitted to the ICU and started on a Cardene drip. A transthoracic echocardiogram revealed mild to moderate concentric LVH and no evidence of a ASD or VSD. Neurology, ophthalmology and neurosurgery were consulted. The intraparenchymal hemorrhage was monitored with serial CTs and an MRI/MRA demonstrated no aneurysms or any evidence of ruptured aneurysm. There was some partial obstruction of the third ventricle and dilatation of the lateral ventricles, but no evidence of non-communicating hydrocephalus seen on computed tomography. Speech, swallow, and physical therapy were instituted early on in the course of the [facility] hospital stay. She was switched to oral medications for her blood pressure. The patient had a superior gaze palsy and exhibited difficulty with specific questions, along with a severe left sided headache. For the headache the patient was given Tylenol, Valproic acid and one dose of Magnesium. The patient was discharged with the below written prescriptions, instructed to continue wearing the left eye patch, to follow up with the blending tank helper, Dr. Johns, at [address] [place] [address] in [place], Dr. Dumont , and her primary medical doctor, Dr. Bowers, after completion of her acute rehabilitation program at [facility]. She was also counselled on monitoring her blood pressure, observing a healthy diet (low in sodium and carbohydrates), and on smoking cessation. She was discharged and educated appropriately. - Date & Time of H&P Date of H&P: 02/24/18 Time of H&P: 14:55 Discharge Exam - Head Exam Head Exam: ATRAUMATIC, NORMAL INSPECTION, NORMOCEPHALIC - Eye Exam Additional comments: superior gaze palsy - ENT Exam ENT Exam: Mucous Membranes Moist - Respiratory Exam Respiratory Exam: Clear to PA & Lateral, NORMAL BREATHING PATTERN - Cardiovascular Exam Cardiovascular Exam: RRR, +S1, +S2 - GI/Abdominal Exam GI & Abdominal Exam: Normal Bowel Sounds - Extremities Exam Extremities exam: normal inspection - Back Exam Back exam: NORMAL INSPECTION. absent: CVA tenderness (L), CVA tenderness (R) - Neurological Exam Neurological exam: Alert, Oriented x3 - Psychiatric Exam Psychiatric exam: Normal Affect, Normal Mood - Skin Skin Exam: Dry, Intact, Normal Color, Warm Discharge Plan - Discharge Medications Prescriptions: Ondansetron ODT [Zofran ODT] 4 mg PO Q6H PRN #30 odt PRN Reason: Nausea/Vomiting - Follow Up Plan Condition: CRITICAL Disposition: REHAB FACILITY/REHAB UNIT Instructions: Malignant Hypertension (DC), Hypertension (DC), Hypertension (GEN ) Additional Instructions: 1) Patient to be discharged and take any prescriptions as directed, unless otherwise indicated. 2) Patient to follow up with blending tank helper, Dr. Johns, at [address] [place] [address] in [place] . 3) Patient to follow up with Dr. Dumont after completion of her rehabilitation at [facility]. 4) Patient to follow up with Primary Medical Doctor within one week after the completion of her rehabilitation at [facility]. 5) Recommend that patient check blood pressure daily and while in acute rehabilitation center she be on a low carbohydrate diet. 6) Patient to continuing wear left eye patch. <Brendan Escalona - Last Filed: 02/24/18 16:37> Provider - Provider Date of Admission: 02/19/18 14:43 Attending physician: Brendan Escalona MD Hospital Course - Lab Results Lab Results: Micro Results 02/19/18 19:36 Naris MRSA Culture (Admit) - Final MRSA NOT DETECTED Most Recent Lab Values WBC 8.3 10^3/ul (4.5-11.0) 02/23/18 06:00 RBC 4.92 10^6/uL (3.5-6.1) 02/23/18 06:00 Hgb 12.6 g/dL (12.0-16.0) 02/23/18 06:00 Hct 38.9 % (36.0-48.0) 02/23/18 06:00 MCV 79.1 fl (80.0-105.0) L 02/23/18 06:00 MCH 25.6 pg (25.0-35.0) 02/23/18 06:00 MCHC 32.4 g/dl (31.0-37.0) 02/23/18 06:00 RDW 15.0 % (11.5-14.5) H 02/23/18 06:00 Plt Count 428 10^3/uL (120.0-450.0) 02/23/18 06:00 MPV 9.0 fl (7.0-11.0) 02/23/18 06:00 Gran % 48.8 % (50.0-68.0) L 02/23/18 06:00 Lymph % (Auto) 38.6 % (22.0-35.0) H 02/23/18 06:00 [facility] % (Auto) 7.8 % (1.0-6.0) H 02/23/18 06:00 Eos % (Auto) 3.4 % (1.5-5.0) 02/23/18 06:00 Baso % (Auto) 1.4 % (0.0-3.0) 02/23/18 06:00 Gran # 4.06 (1.4-6.5) 02/23/18 06:00 Lymph # (Auto) 3.2 (1.2-3.4) 02/23/18 06:00 [facility] # (Auto) 0.7 (0.1-0.6) H 02/23/18 06:00 Eos # (Auto) 0.3 (0.0-0.7) 02/23/18 06:00 Baso # (Auto) 0.12 K/mm3 (0.0-2.0) 02/23/18 06:00 PT 12.7 SECONDS (9.4-12.5) H 02/19/18 13:05 INR 1.11 (0.93-1.08) H 02/19/18 13:05 APTT 33.7 Seconds (25.1-36.5) 02/19/18 13:05 Sodium 146 mmol/L (132-148) 02/23/18 06:30 Potassium 3.7 mmol/L (3.6-5.0) 02/23/18 06:30 Chloride 109 mmol/L (98-107) H 02/23/18 06:30 Carbon Dioxide 26 mmol/L (21-33) 02/23/18 06:30 Anion Gap 15 (10-20) 02/23/18 06:30 BUN 23 mg/dL (7-21) H 02/23/18 06:30 Creatinine 1.0 mg/dl (0.7-1.2) 02/23/18 06:30 Est GFR ( Amer) > 60 02/23/18 06:30 Est GFR (Non-Af Amer) 58 02/23/18 06:30 POC Glucose (mg/dL) 89 mg/dL (65-110) 02/24/18 11:33 Random Glucose 100 mg/dL (70-110) 02/23/18 06:30 Hemoglobin A1c 5.9 % (4.2-6.5) 02/19/18 13:05 Calcium 9.3 mg/dL (8.4-10.5) 02/23/18 06:30 Phosphorus 3.9 mg/dL (2.5-4.5) 02/23/18 06:30 Magnesium 2.1 mg/dL (1.7-2.2) 02/23/18 06:30 Total Bilirubin 0.6 mg/dL (0.2-1.3) 02/23/18 06:30 AST 30 U/L (14-36) 02/23/18 06:30 ALT 33 U/L (7-56) 02/23/18 06:30 Alkaline Phosphatase 87 U/L (38-126) 02/23/18 06:30 Troponin I < 0.01 ng/mL 02/19/18 13:05 Total Protein 7.9 g/dL (5.8-8.3) 02/23/18 06:30 Albumin 4.2 g/dL (3.0-4.8) 02/23/18 06:30 Globulin 3.8 gm/dL 02/23/18 06:30 Albumin/Globulin Ratio 1.1 (1.1-1.8) 02/23/18 06:30 Triglycerides 51 mg/dL (35-160) 02/20/18 05:30 Cholesterol 178 mg/dL (130-200) 02/20/18 05:30 LDL Cholesterol Direct 97 mg/dL (0-129) 02/20/18 05:30 HDL Cholesterol 49 mg/dL (29-60) 02/20/18 05:30 Free T4 0.89 ng/dL (0.78-2.19) 02/20/18 05:30 TSH 3rd Generation 0.27 mIU/mL (0.46-4.68) L 02/20/18 05:30 Urine Color Yellow (YELLOW) 02/21/18 12:28 Urine Appearance Clear (CLEAR) 02/21/18 12:28 Urine pH 5.5 (4.7-8.0) 02/21/18 12:28 Ur Specific Shields <= 1.005 (1.005-1.035) 02/21/18 12:28 Urine Protein Negative mg/dL (<30 mg/dL) 02/21/18 12:28 Urine Glucose (UA) Negative mg/dL (NEGATIVE) 02/21/18 12:28 Urine Ketones Negative mg/dL (NEGATIVE) 02/21/18 12:28 Urine Blood Negative (NEGATIVE) 02/21/18 12:28 Urine Nitrate Negative (NEGATIVE) 02/21/18 12:28 Urine Bilirubin Negative (NEGATIVE) 02/21/18 12:28 Urine Urobilinogen 0.2 E.U./dL (<1 E.U./dL) 02/21/18 12:28 Ur Leukocyte Esterase Negative Bonnie/uL (NEGATIVE) 02/21/18 12:28 Valproic Acid 46 ug/mL (50.0-100.0) L 02/23/18 18:29 Blood Type O POSITIVE 02/19/18 13:58 Blood Type Confirm O POSITIVE 02/19/18 14:19 Antibody Screen Negative 02/19/18 13:58 BBK History Checked No verified bt 02/19/18 13:58 Attending/Attestation - Attestation I have personally seen and examined this patient.: Yes I have fully participated in the care of the patient.: Yes I have reviewed all pertinent clinical information, including history, physical exam and plan: Yes Notes (Text): I have seen and examined patient with the resident. Agree with the note dictated above with the following additions/exceptions: Briefly this is 52 year old female with history of tobacco use, morbid obesity (BMI 43), s/p gastric by pass surgery who was admitted for evaluation of dizziness, headache and found to have left thalamic intra cranial hemorrhage. Continue norvasc and add metoprolol. 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 Continue left eye patch. Ophthalmology consult appreciated. Neurologist and neurosurgeon on board. Maintain normothermia, normoglycemia and aggressive BP control.Headache has improved with magnesium and depakote. Swallow eval appreciated. Keep HOB elevated at 30 degrees. Echo revealed mild to moderate concentric LVH. PT eval recommending SUSIE. Tobacco cessation counselling provided. Upon discharge patient will follow up with Dr Gaitan. Also follow up with Director Validation.
[2018-02-24 12:16] VITALS: BP 135/63; PULSE 78; RESP 18; O2SAT 97
== END 2018-02-24 15:36 | DRG 810 ==
LOC: ED 13:03 → ERH 14:43 → CCU 15:25 → 3RSO 02-22 14:36
PROVIDERS: ADMIT Internal Medicine; ATTEND Hospitalist
DX: I61.8 Other nontraumatic intracerebral hemorrhage (principal); I10 Essential (primary) hypertension; I16.1 Hypertensive emergency; H51.0 Palsy (spasm) of conjugate gaze; F17.210 Nicotine dependence, cigarettes, uncomplicated; H49.00 Third [oculomotor] nerve palsy, unspecified eye; E66.9 Obesity, unspecified; Z98.84 Bariatric surgery status; Z90.710 Acquired absence of both cervix and uterus; Z68.41 Body mass index [BMI] 40.0-44.9, adult; Z82.3 Family history of stroke; Z82.49 Family history of ischemic heart disease and other diseases of the circulatory system; Z91.013 Allergy to seafood; Z88.8 Allergy status to other drugs, medicaments and biological substances